=== PATIENT | female | born 1980 | race Caucasian/White ===

== ENCOUNTER 2020-02-01 06:49 | Day surgery (SDC) | payer OTHER ==
[2020-01-30 13:02] VITALS: BMI 25.0
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
[~2020-02-01 06:49] MED LIST: DEXAMETHASONE SOD PHOSPHATE 10 MG/ML 1 ML VIAL IV ONE; LACTATED RINGERS 1,000 ML IV SCH; LIDOCAINE 1% (10MG/ML) FOR IV START INTRADERMA PRN; ONDANSETRON 4 MG/2 ML VIAL IVP ONE; Pre Op ABX Message 1 EACH MISC MISCELLANE ONE
[2020-02-01] MEDS ORDERED: ROCURONIUM BROMIDE 10 MG/ML 5 ML VIAL IV ONE (07:22)
[2020-02-01] MEDS ORDERED: PROPOFOL 10 MG/ML 20 ML VIAL IV ONE ×2 (07:22)
[2020-02-01] MEDS ORDERED: LIDOCAINE 1% (10MG/ML) FOR IV START SQ ONE (07:22)
[2020-02-01] MEDS ORDERED: KETOROLAC 30 MG/ML 1 ML VIAL ONE (07:22)
[2020-02-01] MEDS ORDERED: LIDOCAINE 1% INJ 10MG/ML (20 ML MDV) ONE (07:22)
[2020-02-01] MEDS ORDERED: ACETAMINOPHEN IV (For NPO) 1,000 MG/100 ML VIAL ONE (07:22)
[2020-02-01] MEDS ORDERED: SUCCINYLCHOLINE CHLORIDE 100 MG/5 ML SYR IV ONE (07:22)
[2020-02-01] MEDS ORDERED: fentaNYL (PF) 50 MCG/ML 2 ML AMP ONE (07:22)
[2020-02-01] MEDS ORDERED: MIDAZOLAM 2 MG/2 ML VIAL ONE (07:22)
[2020-02-01] MEDS ORDERED: BUPIVACAINE (PF) 0.25% 30 ML VIAL SQ ONE (07:28)
--- NOTE | 2020-02-01 08:07 | P.OP ---
Date of Procedure: 02/01/20 Preoperative Diagnosis: Family planning Postoperative Diagnosis: Same Procedure(s) Performed: Laparoscopic tubal occlusion with Filshie clips Anesthesia: PATRICIA Surgeon: Alexandro Estes Estimated Blood Loss (ml): 5 IV fluids (ml): 300 Urine output (ml): 30 Pathology: none sent Condition: stable Disposition: same day Operative Findings: Normal female pelvic anatomy Description of Procedure: Patient was taken to the operating suite where general anesthetic was found be adequate. She was prepped and draped in the normal sterile fashion and placed in the dorsal lithotomy position. Initially a speculum was inserted into the vagina and the anterior lip of the cervix identified and grasped with single- tooth tenaculum. Uterus was then sounded to 8 cm and a uterine manipulator was then inserted without difficulty. Other instruments were removed. Red rubber catheter was then used to drain the bladder of urine. Gloves were then changed, and attention was turned to the abdominal portion procedure. 2 mL of quarter percent Marcaine was then injected periumbilically and through this injected anesthetic a 5 mm skin incision was made. Through this incision under direct visualization with an optical trocar and sleeve, the port and sleeve were inserted. Once peritoneal placement was assured gas was allowed to fully insufflate the abdomen. Patient was then placed in steep Trendelenburg position and 8 mm skin incision was made in her old scar 3 cm above the pubic symphysis in the midline. Through this incision an 8 port and sleeve were then inserted without difficulty and and this was again done under direct visualization. Observations pelvis were then noted first the right fallopian tube than the left fallopian tube had a Filshie clip applied 2-3 cm from uterine cornu. With no bleeding noted in the mesosalpinx incidents removed and gas was allowed to expel from the abdomen. 5 deep breaths were provided during this process. Once completed 4-0 Vicryl was used to close the incision subcuticularly and another 6 mL of quarter percent Marcaine was injected around these incisions. Incidents were then removed from vagina. Sponge, lap, needle counts were Plan - Discharge Summary Discharge Rx Participant: Yes New Discharge Prescriptions: New Ibuprofen [Motrin] 600 mg PO Q6HR PRN #30 tab PRN Reason: Pain HYDROcodone/APAP 5-325MG [[place] 5-325] 1 tab PO Q4HR PRN #30 tab PRN Reason: Pain No Action buPROPion HCL [Wellbutrin XL] 300 mg PO DAILY hydrOXYzine HCL 25 mg PO HS Deblitane 1 tab PO HS Discharge Medication List Deblitane 1 tab PO HS 01/30/20 [History] buPROPion HCL [Wellbutrin XL] 300 mg PO DAILY 01/30/20 [History] hydrOXYzine HCL 25 mg PO HS 01/30/20 [History] HYDROcodone/APAP 5-325MG [[place] 5-325] 1 tab PO Q4HR PRN #30 tab 02/01/20 [Rx] Ibuprofen [Motrin] 600 mg PO Q6HR PRN #30 tab 02/01/20 [Rx] Follow up Appointment(s)/Referral(s): Alexandro Estes DO [Doctor of Osteopathic Medicine] - 2 Weeks Activity/Diet/Wound Care/Special Instructions: No heavy lifting, limit stairs and driving, and pelvic rest. If any high temperatures, heavy bleeding, or severe pain call my office
[2020-02-01 08:21] VITALS: RESP 16; TEMP 97.8
[2020-02-01] MEDS: HYDROmorphone 0.5 MG/0.5 ML SYRINGE IVP PRN ×2 (08:30→08:39)
[2020-02-01] MEDS ORDERED: HYDROcodone/APAP 5-325MG 1 EACH TAB PO ONE (09:27)
[2020-02-01 10:05] VITALS: BP 139/90; PULSE 95
== END 2020-02-01 10:28 | disposition home or self-care (01) ==
LOC: OR 06:49
PROVIDERS: ATTEND Obstetrics & Gynecology
DX: Z30.2 Encounter for sterilization (principal); F32.9 Major depressive disorder, single episode, unspecified; K21.9 Gastro-esophageal reflux disease without esophagitis; F17.200 Nicotine dependence, unspecified, uncomplicated; Z87.81 Personal history of (healed) traumatic fracture; Z90.49 Acquired absence of other specified parts of digestive tract; Z98.890 Other specified postprocedural states; Z79.3 Long term (current) use of hormonal contraceptives; Z79.899 Other long term (current) drug therapy
CPT/HCPCS: 81025; 58671; J2250; J1100; J2405; J2001; J3010; J1885; J0131; J0330; J2704; J1170

== ENCOUNTER 2020-10-06 13:34 | Inpatient (IN) | payer MEDICAID, OTHER ==
[2020-10-06] MEDS ORDERED: chlordiazePOXIDE 25 MG CAP PO STA (14:24)
[2020-10-06 14:56] LABS: Amphetamine Screen,Urine Detected (NotDetected); Barbiturate Screen,Urine Not Detected (NotDetected); Benzodiazepines Screen,Urine Not Detected (NotDetected); Cocaine Screen,Urine Not Detected (NotDetected); Methadone Screen, Urine Not Detected (NotDetected); Opiate Screen,Urine Not Detected (NotDetected); Oxycodone Screen, Urine Not Detected (NotDetected); Phencyclidine Screen,Urine Not Detected (NotDetected); Tricyclic Antidepressant,Urine Not Detected (NotDetected); Urn Cannabinoid Scrn Detected (NotDetected)
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
[2020-10-06] MEDS ORDERED: ACETAMINOPHEN TAB 325 MG TAB PO PRN (16:06)
[2020-10-06] MEDS ORDERED: MAG HYDROX/AL HYDROX/SIMETH 30 ML CUP PO PRN (16:06)
[2020-10-06] MEDS ORDERED: MAGNESIUM HYDROXIDE 2,400 MG/10 ML CUP PO PRN (16:06)
[2020-10-06] MEDS ORDERED: LORazepam 2 MG/ML INJ IM PRN (16:11)
[2020-10-06] MEDS ORDERED: HALOPERIDOL LACTATE 5 MG/ML 1 ML VIAL IM PRN (16:11)
[2020-10-06] MEDS: LORazepam 1 MG TAB PO PRN (17:36)
[2020-10-06] MEDS: NICOTINE 14MG/24HR PATCH TRANSDERM SCH (20:52)
[2020-10-07 06:37] VITALS: RESP 18; TEMP 98.2
[2020-10-07 06:46] LABS: Basophils % (A) 0 %; Eosinophils # (A) 0.1 k/uL (0-0.7); Eosinophils % (A) 3 %; HCT 43.5 % (34.0-46.0); HGB 14.4 gm/dL (11.4-16.0); Lymphocytes # (A) 1.6 k/uL (1.0-4.8); Lymphocytes % (A) 37 %; MCH 29.9 pg (25.0-35.0); MCHC 33.2 g/dL (31.0-37.0); MCV 89.9 fL (80.0-100.0); Mean Platelet Volume 6.9; Monocytes # (A) 0.3 k/uL (0-1.0); Monocytes % (A) 6 %; Neutrophils # (A) 2.2 k/uL (1.3-7.7); Neutrophils % (A) 51 %; Platelet Count 259 k/uL (150-450); RBC 4.84 m/uL (3.80-5.40); RDW 12.9 % (11.5-15.5); WBC 4.3 k/uL (3.8-10.6)
[2020-10-07 06:56] LABS: ALT 22 U/L (4-34); AST 23 U/L (14-36); African American GFR (CKD) >90 (>60 ml/min/1.73 sqM); Albumin 3.6 g/dL (3.5-5.0); Alkaline Phosphatase 51 U/L (38-126); Anion Gap 4 mmol/L; Blood Urea Nitrogen 12 mg/dL (7-17); Calcium 8.7 mg/dL (8.4-10.2); Carbon Dioxide 32 mmol/L (22-30); Chloride 100 mmol/L (98-107); Cholesterol 225 mg/dL (<200); Glucose 98 mg/dL (74-99); HDL Cholesterol 66 mg/dL (40-60); LDL Cholesterol,Calculated 136 mg/dL (0-99); Non-African American GFR(CKD) >90 (>60 ml/min/1.73 sqM); Potassium 3.9 mmol/L (3.5-5.1); Sodium 136 mmol/L (137-145); Total Bilirubin 0.6 mg/dL (0.2-1.3); Total Protein 5.9 g/dL (6.3-8.2); Triglycerides 113 mg/dL (<150)
[2020-10-07] MEDS: LORazepam 1 MG TAB PO PRN ×3 (08:07→23:07)
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
[2020-10-07] MEDS: NICOTINE 14MG/24HR PATCH TRANSDERM SCH (21:07)
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
[2020-10-08] MEDS: LORazepam 1 MG TAB PO PRN (08:33)
[2020-10-08] MEDS ORDERED: diazePAM 5 MG TAB PO STA (08:56)
[2020-10-08 09:29] VITALS: BP 117/79; PULSE 104
--- NOTE | 2020-10-08 09:42 | CT ---
EXAMINATION TYPE: CT brain wo con DATE OF EXAM: 10/08/2020 COMPARISON: HISTORY: Unwitnessed fall, trauma and pain CT DLP: 1012.70 mGycm. Automated Exposure Control for Dose Reduction was Utilized. TECHNIQUE: CT scan of the head is performed without contrast. FINDINGS: There is no acute intracranial hemorrhage, mass effect, or midline shift identified. The ventricles and sulci are within normal limits in size. The globes are intact and the visualized sin uses are clear. IMPRESSION: No acute intracranial hemorrhage, mass effect, or midline shift is seen.
--- NOTE | 2020-10-08 11:18 | P.EN ---
I responded to the rapid response on the psych floor called my nursing staff and arrived to find the patient laying on the floor. She was awake and alert. Nursing staff informed me that she had the generalized seizure and failed to the ground and hit her head on the floor. Patient is having some mild headache but otherwise denies any complaints. She was awake and alert. She had some right periorbital bruising. No focal deficits. No loss of urine or bowel control. Patient admitted that she usually drinks a fifth of liquor on a daily basis. Last drink was 2 days ago. I was able to get the patient in the wheelchair with assistance of the staff. I ordered one-time dose of Valium 10 mg to be given stat noncontrast CT of the head for further evaluation. I advised to transfer the patient to the medical floor for observation.
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
[2020-10-08] MEDS ORDERED: chlordiazePOXIDE 25 MG CAP PO SCH (13:00)
== END 2020-10-08 11:32 | disposition short-term general hospital (02) | DRG 897 ==
LOC: EC 13:34 → 3MHU 15:58
PROVIDERS: ADMIT Psychiatry & Neurology Psychiatry; ATTEND Psychiatry & Neurology Psychiatry
DX: F19.94 Other psychoactive substance use, unspecified with psychoactive substance-induced mood disorder (principal); F11.20 Opioid dependence, uncomplicated; F15.20 Other stimulant dependence, uncomplicated; R45.851 Suicidal ideations; F10.229 Alcohol dependence with intoxication, unspecified; F10.239 Alcohol dependence with withdrawal, unspecified; F12.10 Cannabis abuse, uncomplicated; F14.10 Cocaine abuse, uncomplicated; Z71.6 Tobacco abuse counseling; F17.210 Nicotine dependence, cigarettes, uncomplicated; F32.9 Major depressive disorder, single episode, unspecified; F43.10 Post-traumatic stress disorder, unspecified; F45.41 Pain disorder exclusively related to psychological factors; R56.9 Unspecified convulsions; S00.11XA Contusion of right eyelid and periocular area, initial encounter; Y04.0XXA Assault by unarmed brawl or fight, initial encounter; Z59.9 Problem related to housing and economic circumstances, unspecified; Z63.5 Disruption of family by separation and divorce; Z79.899 Other long term (current) drug therapy; Z20.822 Contact with and (suspected) exposure to COVID-19
CPT/HCPCS: 70450; 80053; 80061; 80306; 82075; 83036; 84443; 85025; 87635; 99285

== ENCOUNTER 2020-10-08 09:07 | Inpatient (IN) | payer OTHER ==
[2020-10-08] MEDS ORDERED: LORazepam 2 MG/ML INJ IV PRN ×2 (13:12)
[2020-10-08] MEDS ORDERED: ONDANSETRON 4 MG/2 ML VIAL IVP PRN (13:13)
[2020-10-08] MEDS ORDERED: ACETAMINOPHEN TAB 325 MG TAB PO PRN (13:13)
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
[2020-10-08 14:30] LABS: Basophils % (A) 1 %; Eosinophils # (A) 0.1 k/uL (0-0.7); Eosinophils % (A) 1 %; HCT 49.5 % (34.0-46.0); HGB 16.8 gm/dL (11.4-16.0); Lymphocytes # (A) 1.2 k/uL (1.0-4.8); Lymphocytes % (A) 21 %; MCH 30.6 pg (25.0-35.0); MCV 90.1 fL (80.0-100.0); Mean Platelet Volume 7.4; Monocytes # (A) 0.3 k/uL (0-1.0); Monocytes % (A) 6 %; Neutrophils # (A) 3.9 k/uL (1.3-7.7); Neutrophils % (A) 70 %; Platelet Count 265 k/uL (150-450); RBC 5.49 m/uL (3.80-5.40); RDW 12.8 % (11.5-15.5); WBC 5.6 k/uL (3.8-10.6)
[2020-10-08] MEDS: LORazepam 2 MG/ML INJ IV PRN ×2 (16:58→19:49)
[2020-10-08] MEDS: THIAMINE 100 MG TAB PO SCH (16:59)
[2020-10-08] MEDS: HEPARIN SODIUM,PORCINE 5,000 UNIT/ML 1 ML VIAL SQ SCH (19:49)
[2020-10-08] MEDS ORDERED: NICOTINE 14MG/24HR PATCH TRANSDERM SCH (21:00)
[2020-10-09 02:21] LABS: African American GFR (CKD) 128.3 (60.0-200.0); Albumin 4.2 g/dL (3.80-4.90); Albumin/Globulin Ratio 1.83 (1.60-3.17); Anion Gap 11.3 mmol/L (4.00-12.00); BUN/Creat Ratio 18.57 Ratio (12.00-20.00); Calcium 9.7 mg/dL (8.7-10.3); Carbon Dioxide 20.7 mmol/L (21.6-31.8); Globulin 2.3 g/dL (1.6-3.3); Non-African American GFR(CKD) 110.7 (60.0-200.0); Potassium 4.3 mmol/L (3.5-5.5); Total Bilirubin 0.4 mg/dL (0.3-1.2); Total Protein 6.5 g/dL (6.2-8.2)
[2020-10-09] MEDS: HEPARIN SODIUM,PORCINE 5,000 UNIT/ML 1 ML VIAL SQ SCH (07:37)
[2020-10-09] MEDS: THIAMINE 100 MG TAB PO SCH ×2 (07:37→16:04)
[2020-10-09] MEDS: LORazepam 2 MG/ML INJ IV PRN ×2 (09:57→12:47)
[2020-10-09 12:47] LABS: Appearance,Urine Cloudy (Clear); Bacteria,Urine Many /hpf; Bilirubin,Urine Negative (Negative); Blood,Urine Negative (Negative); Color,Urine Yellow; Glucose,Urine (UA) Negative (Negative); Ketones,Urine 1+ (Negative); Leukocyte Esterase,Urine Large (Negative); Mucus,Urine Few /hpf; Nitrite,Urine Positive (Negative); Protein,Urine Trace (Negative); RBC,Urine 2 /hpf (0-5); Specific Gravity,Urine 1.021 (1.001-1.035); Squamous Epithelial Cell,Urine 10 /hpf (0-4); Urobilinogen,Urine <2.0 mg/dL (<2.0); WBC,Urine 123 /hpf (0-5)
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
--- NOTE | 2020-10-09 14:48 | P.DS ---
Providers Date of admission: 10/08/20 11:37 Expected date of discharge: 10/09/20 Attending physician: Javan Celis Consults: 10/08/20 13:15 Consult Physician Routine Consulting Provider: Svetlana Gutierrez Consult Reason/Comments: Alcohol withdrawal seizure Do you want consulting provider notified?: Yes 10/08/20 14:11 Consult Physician Routine Consulting Provider: You Lion Consult Reason/Comments: Inpatient psych admission? Do you want consulting provider notified?: Yes Primary care physician: Stated None Hospital Course: 1. Seizure episode, most likely alcohol withdrawal seizure. Computed tomography scan of the head showed no acute findings. EKG reviewed by neurology and reported normal. No need for antiepileptic at this time. 2. Severe depression, now denies any suicidal thoughts. Seen and evaluated by psychiatry 3. Polysubstance abuse including methamphetamine and marijuana. Counseled extensively to quit 4. Alcohol abuse with possible alcohol withdrawal seizure. Counseled extensively to quit Patient will be discharged back to the psych unit today for further management of her depression Patient Condition at Discharge: Fair Plan - Discharge Summary New Discharge Prescriptions: Continue Nicotine 14Mg/24Hr Patch [Habitrol] 1 patch TRANSDERM HS patch Discontinued haloperidoL [Haldol] 4 mg PO TID PRN tab PRN Reason: Agitation Or Acute Anxiety chlordiazePOXIDE HCl [Librium] 50 mg PO QID cap Acetaminophen Tab [Tylenol] 650 mg PO Q4HR PRN tab PRN Reason: Mild Pain/Discomfort Discharge Medication List Nicotine 14Mg/24Hr Patch [Habitrol] 1 patch TRANSDERM HS patch 10/08/20 [Rx] Discharge Disposition: TRANSFER TO PSYCH HOSP/UNIT
--- NOTE | 2020-10-09 14:48 | EEG ---
ELECTROENCEPHALOGRAM REPORT DATE OF SERVICE: 10/09/2020 PREAMBLE: This is a 39-year-old female who has new onset seizure, probably from alcohol withdrawal. This study is performed to evaluate for any epileptiform activity. EEG FINDINGS: This is a 21 channel routine EEG recording in a patient utilizing 10/20 international system with referential and bipolar montages. Background consists of well developed, well regulated, moderate voltage activity in 8-9 hertz alpha. Background is posterior dominant and reactive to eye opening and closing. There is moderate amount of low- voltage fast frequency beta activity also seen in the bilateral hemispheric region. The patient was drowsy and also in stage 2 sleep during most of the study with presence of some vertex waves and sleep spindles. The photic driving response was not clearly seen. No focal or generalized epileptiform activity was seen. IMPRESSION: This is a normal EEG during wakefulness, drowsiness and stage 2 sleep. The presence of excessive amount of low-voltage fast frequency beta is suggestive of medication effect. No epileptiform activity was seen. MMODL / IJN: [id number] /
[2020-10-09 15:16] VITALS: BP 114/82; PULSE 113; RESP 16; TEMP 98.1
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
[2020-10-09] MEDS ORDERED: chlordiazePOXIDE 25 MG CAP PO SCH (16:00)
[2020-10-09] MEDS ORDERED: VENLAFAXINE HCL ER 75 MG CAP PO SCH (21:00)
== END 2020-10-09 17:12 | DRG 897 ==
LOC: 4SSUR 11:37
PROVIDERS: ADMIT Internal Medicine; ATTEND Internal Medicine
DX: F10.239 Alcohol dependence with withdrawal, unspecified (principal); R45.851 Suicidal ideations; G40.89 Other seizures; F32.2 Major depressive disorder, single episode, severe without psychotic features; F15.20 Other stimulant dependence, uncomplicated; F12.10 Cannabis abuse, uncomplicated; F17.210 Nicotine dependence, cigarettes, uncomplicated; S00.11XA Contusion of right eyelid and periocular area, initial encounter; F43.10 Post-traumatic stress disorder, unspecified; Z20.822 Contact with and (suspected) exposure to COVID-19; W18.30XA Fall on same level, unspecified, initial encounter
CPT/HCPCS: 80053; 81001; 85025; 87635; 95819

== ENCOUNTER 2020-10-09 17:05 | Inpatient (IN) | payer MEDICAID ==
[2020-10-09] MEDS ORDERED: LORazepam 1 MG TAB PO PRN ×2 (17:53)
[2020-10-09] MEDS ORDERED: MAG HYDROX/AL HYDROX/SIMETH 30 ML CUP PO PRN (17:57)
[2020-10-09] MEDS ORDERED: MAGNESIUM HYDROXIDE 2,400 MG/10 ML CUP PO PRN (17:57)
[2020-10-09] MEDS ORDERED: LORazepam 2 MG/ML INJ IM PRN ×2 (18:01)
[2020-10-09] MEDS ORDERED: haloperidoL 5 MG TAB PO PRN (19:49)
[2020-10-09] MEDS ORDERED: HALOPERIDOL LACTATE 5 MG/ML 1 ML VIAL IM PRN (19:49)
[2020-10-09] MEDS: VENLAFAXINE HCL 75 MG TAB PO SCH (19:56)
[2020-10-09] MEDS: NICOTINE 14MG/24HR PATCH TRANSDERM SCH (19:56)
[2020-10-09] MEDS: THIAMINE 100 MG TAB PO SCH (19:56)
[2020-10-09] MEDS: chlordiazePOXIDE 25 MG CAP PO SCH (23:18)
[2020-10-10] MEDS: ACETAMINOPHEN TAB 325 MG TAB PO PRN ×2 (01:28→14:30)
[2020-10-10 07:28] LABS: Cholesterol 288 mg/dL (<200); HDL Cholesterol 54 mg/dL (40-60); LDL Cholesterol,Calculated 211 mg/dL (0-99); Triglycerides 115 mg/dL (<150)
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
[2020-10-10] MEDS: chlordiazePOXIDE 25 MG CAP PO SCH ×3 (09:41→21:59)
[2020-10-10] MEDS: THIAMINE 100 MG TAB PO SCH ×2 (09:41→21:58)
--- NOTE | 2020-10-10 11:12 | P.CONS ---
History of Present Illness - Reason for Consult Consult date: 10/10/20 Medical management - Chief Complaint Depression - History of Present Illness This is a 39 with past medical history noted below significant for alcohol abuse and depression was currently admitted to the psych unit. I was asked to see the patient for medical management. Patient is awake and alert. She is doing well. She had a seizure episode couple of days ago that was attributed to alcohol withdrawal. She does not have any complaint at this time. EEG was normal. Review of Systems Review of system: 14 points review of systems were obtained and were negative except to what were mentioned in the HPI. Past Medical History Past Medical History: Musculoskeletal Disorder Additional Past Medical History / Comment(s): AA in 2018-fx. femur History of Any Multi-Drug Resistant Organisms: None Reported Past Surgical History: Appendectomy, Orthopedic Surgery Additional Past Surgical History / Comment(s): ORIF right femur & hip Past Anesthesia/Blood Transfusion Reactions: No Reported Reaction Past Psychological History: Depression, PTSD Smoking Status: Current every day smoker Past Alcohol Use History: Abuse, Daily Additional Past Alcohol Use History / Comment(s): down to 6-7 cigs/day for 20 yrs. Past Drug Use History: Cocaine, Marijuana, Methamphetamine, Opiates, Prescription Drug Abuse Additional Drug Use History / Comment(s): Pt reports she has polysubstance abuse since the age of 20 - Past Family History Mother Family Medical History: No Reported History Medications and Allergies Home Medications Medication Instructions Recorded Confirmed Type Nicotine 14Mg/24Hr Patch [Habitrol] 1 patch TRANSDERM HS patch 10/08/20 10/09/20 Rx Allergies Allergy/AdvReac Type Severity Reaction Status Date / Time No Known Allergies Allergy Verified 10/09/20 18:36 Physical Exam Vitals: Vital Signs Temp Pulse Resp BP Pulse Ox 10/10/20 09:48 98.2 F 103 H 16 132/88 97 10/10/20 01:30 97.3 F L 122 H 18 115/82 10/09/20 23:22 104 H 136/75 10/09/20 18:21 98.1 F 104 H 20 127/77 Intake and Output 10/09/20 10/10/20 10/10/20 22:59 06:59 14:59 Other: Weight 71.838 kg General: The patient is awake and alert, in no distress Eye: there is normal conjunctiva bilaterally. Neck: The neck is supple, there is no JVD. Cardiovascular: Normal S1-S2, no S3-S4, no murmurs. Respiratory: Lungs clear to auscultation bilaterally Gastrointestinal: Abdomen is soft, nontender Musculoskeletal: There is no pedal edema. Neurological:. Speech is normal. Skin: Skin is warm and dry Results Labs: Abnormal Lab Results - Last 24 Hours (Table) 10/10/20 Range/Units 06:48 Cholesterol 288 H (<200) mg/dL LDL Cholesterol, Calc 211 H (0-99) mg/dL Assessment and Plan Assessment: 39-year-old female currently admitted to the psych unit for further management of her depression. Below is a list of her medical problems. 1. Severe depression with suicidal thoughts on presentation to the hospital, managed by psychiatry 2. Heavy alcohol abuse: Counseled extensively to stop 3. Alcohol withdrawal seizure. Patient was monitored on the medical floor. No evidence of withdrawal. EEG was normal. Thank you for the consultation. I will follow up on the patient on as-needed basis.
[2020-10-10 11:59] LABS: Hemoglobin A1C 4.9 % (4.0-6.0)
[2020-10-10] MEDS: VENLAFAXINE HCL 75 MG TAB PO SCH (21:58)
[2020-10-10] MEDS: NICOTINE 14MG/24HR PATCH TRANSDERM SCH (22:04)
[2020-10-11 06:38] VITALS: TEMP 98
[2020-10-11] MEDS: THIAMINE 100 MG TAB PO SCH (08:12)
[2020-10-11] MEDS: chlordiazePOXIDE 25 MG CAP PO SCH (08:12)
[2020-10-11 09:50] VITALS: BP 123/80; PULSE 120; RESP 16
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
== END 2020-10-11 12:59 | disposition home or self-care (01) | DRG 881 ==
LOC: 3MHU 17:17
PROVIDERS: ADMIT Psychiatry & Neurology Psychiatry; ATTEND Psychiatry & Neurology Psychiatry
DX: F32.9 Major depressive disorder, single episode, unspecified (principal); R45.851 Suicidal ideations; F15.20 Other stimulant dependence, uncomplicated; F10.230 Alcohol dependence with withdrawal, uncomplicated; F11.20 Opioid dependence, uncomplicated; R56.9 Unspecified convulsions; F14.10 Cocaine abuse, uncomplicated; F12.10 Cannabis abuse, uncomplicated; F43.10 Post-traumatic stress disorder, unspecified; F17.200 Nicotine dependence, unspecified, uncomplicated; Z91.419 Personal history of unspecified adult abuse
CPT/HCPCS: 80061; 83036

== ENCOUNTER 2021-04-07 07:13 | Emergency (ER) | payer OTHER ==
[2021-04-07 07:22] VITALS: TEMP 98.4
[2021-04-07] MEDS ORDERED: ONDANSETRON 4 MG/2 ML VIAL IVP STA (07:33)
[2021-04-07] MEDS ORDERED: KETOROLAC 15 MG/ML 1 ML VIAL IVP STA ×2 (07:33→09:22)
[2021-04-07] MEDS ORDERED: SODIUM CHLORIDE 0.9% 500 ML 500 ML IV STA (07:33)
[2021-04-07] MEDS ORDERED: HYDROmorphone 0.5 MG/0.5 ML SYRINGE IVP STA ×2 (07:33→10:21)
[2021-04-07] MEDS ORDERED: SODIUM CHLORIDE 0.9% 1,000 ML IV STA (07:33)
--- NOTE | 2021-04-07 08:03 | ED ---
Abdominal Pain HPI - General Chief Complaint: Abdominal Pain Stated Complaint: Side Pain Time Seen by Provider: 04/07/21 07:24 Source: patient, RN notes reviewed Mode of arrival: wheelchair Limitations: no limitations - History of Present Illness Initial Comments: This a 40-year-old female presents emergency Department with chief complaint of right flank pain. Patient states severe pain that started overnight. Patient states that associate nausea vomiting no diarrhea no constipation. Prior appendectomy sits there is no chance . She has no lower abdominal complaints. Patient states nothing currently is making her pain feel better or worse. She has NO KNOWN DRUG ALLERGIES. - Related Data Home Medications Medication Instructions Recorded Confirmed Naproxen 500 mg PO BID 04/07/21 04/07/21 Previous Rx's Medication Instructions Recorded Cephalexin [Keflex] 500 mg PO Q6HR #40 cap 04/07/21 Ketorolac [Toradol] 10 mg PO Q8HR #15 tab 04/07/21 Ondansetron Odt [Zofran Odt] 4 mg PO Q8HR PRN #10 tab 04/07/21 Tamsulosin [Flomax] 0.4 mg PO DAILY #7 cap 04/07/21 Allergies Allergy/AdvReac Type Severity Reaction Status Date / Time No Known Allergies Allergy Verified 04/07/21 08:51 Review of Systems ROS Statement: Those systems with pertinent positive or pertinent negative responses have been documented in the HPI. ROS Other: All systems not noted in ROS Statement are negative. Past Medical History Past Medical History: Musculoskeletal Disorder Additional Past Medical History / Comment(s): AA in 2018-fx. femur History of Any Multi-Drug Resistant Organisms: None Reported Past Surgical History: Appendectomy, Orthopedic Surgery Additional Past Surgical History / Comment(s): ORIF right femur & hip Past Anesthesia/Blood Transfusion Reactions: No Reported Reaction Past Psychological History: Depression, PTSD Smoking Status: Current every day smoker Past Alcohol Use History: None Reported Past Drug Use History: None Reported - Past Family History Mother Family Medical History: No Reported History General Exam Limitations: no limitations General appearance: alert, in no apparent distress Head exam: Present: atraumatic, normocephalic, normal inspection Neck exam: Present: normal inspection. Absent: tenderness, meningismus, lymphadenopathy Respiratory exam: Present: normal lung sounds bilaterally. Absent: respiratory distress, wheezes, rales, rhonchi, stridor Cardiovascular Exam: Present: regular rate, normal rhythm, normal heart sounds. Absent: systolic murmur, diastolic murmur, rubs, gallop, clicks GI/Abdominal exam: Present: soft, tenderness, normal bowel sounds. Absent: distended, guarding, rebound, rigid Back exam: Present: CVA tenderness (R). Absent: CVA tenderness (L) Neurological exam: Present: alert Skin exam: Present: warm, dry, intact, normal color. Absent: rash Course Vital Signs 04/07/21 07:19 Temperature 98.4 F Pulse Rate 87 Respiratory 20 Rate Blood Pressure 133/95 O2 Sat by Pulse 100 Oximetry Medical Decision Making - Medical Decision Making 32-year-old female presented emergency department with right flank pain. Patient's found to have obstructing 6 mm right ureteral calculi. Patient lab review patient does have evidence of urinary tract infection. I did discuss the case with Dr. Heaton was controlled patient be discharged with pain control with oral antibiotics will be given a dose of Rocephin prior to discharge will follow-up in office return parameters were discussed. - Lab Data Result diagrams: 04/07/21 07:59 04/07/21 07:59 Lab Results 04/07/21 04/07/21 04/07/21 Range/Units 07:59 07:59 09:09 WBC 13.7 H (3.8-10.6) k/uL RBC 5.34 (3.80-5.40) m/uL Hgb 15.9 (11.4-16.0) gm/dL Hct 46.8 H (34.0-46.0) % MCV 87.7 (80.0-100.0) fL MCH 29.8 (25.0-35.0) pg MCHC 33.9 (31.0-37.0) g/dL RDW 13.2 (11.5-15.5) % Plt Count 291 (150-450) k/uL MPV 7.3 Neutrophils % 87 % Lymphocytes % 8 % Monocytes % 3 % Eosinophils % 1 % Basophils % 0 % Neutrophils # 12.0 H (1.3-7.7) k/uL Lymphocytes # 1.1 (1.0-4.8) k/uL Monocytes # 0.4 (0-1.0) k/uL Eosinophils # 0.2 (0-0.7) k/uL Basophils # 0.0 (0-0.2) k/uL Sodium 137 (137-145) mmol/L Potassium 3.8 (3.5-5.1) mmol/L Chloride 108 H (98-107) mmol/L Carbon Dioxide 19 L (22-30) mmol/L Anion Gap 10 mmol/L BUN 14 (7-17) mg/dL Creatinine 0.64 (0.52-1.04) mg/dL Est GFR (CKD-EPI)AfAm >90 (>60 ml/min/1.73 sqM) Est GFR (CKD-EPI)NonAf >90 (>60 ml/min/1.73 sqM) Glucose 143 H (74-99) mg/dL Calcium 9.6 (8.4-10.2) mg/dL Total Bilirubin 0.5 (0.2-1.3) mg/dL AST 27 (14-36) U/L ALT 19 (4-34) U/L Alkaline Phosphatase 80 (38-126) U/L Total Protein 6.8 (6.3-8.2) g/dL Albumin 4.2 (3.5-5.0) g/dL Lipase 33 (23-300) U/L Urine Color Yellow Urine Appearance Cloudy H (Clear) Urine pH 7.5 (5.0-8.0) Ur Specific [place] 1.022 (1.001-1.035) Urine Protein Trace H (Negative) Urine Glucose (UA) Negative (Negative) Urine Ketones 1+ H (Negative) Urine Blood Small H (Negative) Urine Nitrite Positive H (Negative) Urine Bilirubin Negative (Negative) Urine Urobilinogen <2.0 (<2.0) mg/dL Ur Leukocyte Esterase Large H (Negative) Urine RBC 27 H (0-5) /hpf Urine WBC 48 H (0-5) /hpf Ur Squamous Epith Cells 17 H (0-4) /hpf Urine Bacteria Many H (None) /hpf Urine Mucus Moderate H (None) /hpf Urine HCG, Qual (Not Detectd) 04/07/21 Range/Units 09:09 WBC (3.8-10.6) k/uL RBC (3.80-5.40) m/uL Hgb (11.4-16.0) gm/dL Hct (34.0-46.0) % MCV (80.0-100.0) fL MCH (25.0-35.0) pg MCHC (31.0-37.0) g/dL RDW (11.5-15.5) % Plt Count (150-450) k/uL MPV Neutrophils % % Lymphocytes % % Monocytes % % Eosinophils % % Basophils % % Neutrophils # (1.3-7.7) k/uL Lymphocytes # (1.0-4.8) k/uL Monocytes # (0-1.0) k/uL Eosinophils # (0-0.7) k/uL Basophils # (0-0.2) k/uL Sodium (137-145) mmol/L Potassium (3.5-5.1) mmol/L Chloride (98-107) mmol/L Carbon Dioxide (22-30) mmol/L Anion Gap mmol/L BUN (7-17) mg/dL Creatinine (0.52-1.04) mg/dL Est GFR (CKD-EPI)AfAm (>60 ml/min/1.73 sqM) Est GFR (CKD-EPI)NonAf (>60 ml/min/1.73 sqM) Glucose (74-99) mg/dL Calcium (8.4-10.2) mg/dL Total Bilirubin (0.2-1.3) mg/dL AST (14-36) U/L ALT (4-34) U/L Alkaline Phosphatase (38-126) U/L Total Protein (6.3-8.2) g/dL Albumin (3.5-5.0) g/dL Lipase (23-300) U/L Urine Color Urine Appearance (Clear) Urine pH (5.0-8.0) Ur Specific [place] (1.001-1.035) Urine Protein (Negative) Urine Glucose (UA) (Negative) Urine Ketones (Negative) Urine Blood (Negative) Urine Nitrite (Negative) Urine Bilirubin (Negative) Urine Urobilinogen (<2.0) mg/dL Ur Leukocyte Esterase (Negative) Urine RBC (0-5) /hpf Urine WBC (0-5) /hpf Ur Squamous Epith Cells (0-4) /hpf Urine Bacteria (None) /hpf Urine Mucus (None) /hpf Urine HCG, Qual Not Detected (Not Detectd) Disposition Clinical Impression: Right ureteral calculus, Urinary tract infection Disposition: HOME SELF-CARE Condition: Stable Instructions (If sedation given, give patient instructions): Kidney Stones (ED) Additional Instructions: Please return to the Emergency Department if symptoms worsen or any other concerns. Prescriptions: Tamsulosin [Flomax] 0.4 mg PO DAILY #7 cap Cephalexin [Keflex] 500 mg PO Q6HR #40 cap Ketorolac [Toradol] 10 mg PO Q8HR #15 tab Ondansetron Odt [Zofran Odt] 4 mg PO Q8HR PRN #10 tab PRN Reason: Nausea Is patient prescribed a controlled substance at d/c from ED?: No [facility]: [facility] [Primary Care Provider] - 1-2 days Tre Oneal MD [STAFF PHYSICIAN] - 1-2 days Time of Disposition: 10:21
[2021-04-07 08:08] LABS: Basophils % (A) 0 %; Eosinophils # (A) 0.2 k/uL (0-0.7); Eosinophils % (A) 1 %; HCT 46.8 % (34.0-46.0); HGB 15.9 gm/dL (11.4-16.0); Lymphocytes # (A) 1.1 k/uL (1.0-4.8); Lymphocytes % (A) 8 %; MCH 29.8 pg (25.0-35.0); MCHC 33.9 g/dL (31.0-37.0); MCV 87.7 fL (80.0-100.0); Mean Platelet Volume 7.3; Monocytes # (A) 0.4 k/uL (0-1.0); Monocytes % (A) 3 %; Neutrophils % (A) 87 %; Platelet Count 291 k/uL (150-450); RBC 5.34 m/uL (3.80-5.40); RDW 13.2 % (11.5-15.5); WBC 13.7 k/uL (3.8-10.6)
[2021-04-07 08:25] LABS: ALT 19 U/L (4-34); AST 27 U/L (14-36); African American GFR (CKD) >90 (>60 ml/min/1.73 sqM); Albumin 4.2 g/dL (3.5-5.0); Alkaline Phosphatase 80 U/L (38-126); Anion Gap 10 mmol/L; Blood Urea Nitrogen 14 mg/dL (7-17); Calcium 9.6 mg/dL (8.4-10.2); Carbon Dioxide 19 mmol/L (22-30); Chloride 108 mmol/L (98-107); Glucose 143 mg/dL (74-99); Lipase 33 U/L (23-300); Non-African American GFR(CKD) >90 (>60 ml/min/1.73 sqM); Potassium 3.8 mmol/L (3.5-5.1); Sodium 137 mmol/L (137-145); Total Bilirubin 0.5 mg/dL (0.2-1.3); Total Protein 6.8 g/dL (6.3-8.2)
--- NOTE | 2021-04-07 08:49 | CT ---
EXAMINATION TYPE: CT abdomen pelvis wo con DATE OF EXAM: 04/07/2021 COMPARISON: None HISTORY: 40-year-old female right flank pain, nausea, vomiting CT DLP: 538.4 mGycm. Automated exposure control for dose reduction was used. TECHNIQUE: Contiguous axial scanning of the abdomen and pelvis without IV contrast. Coronal and sagit roberto reconstructions performed. FINDINGS: Heart normal size without pericardial effusion. Tiny hiatal hernia. Lung bases clear without pleural effusion. Liver enlarged at 19.1 cm. Gallbladder is collapsed. Adrenal glands and pancreas show no gross abnorm ality by noncontrast CT. Borderline size spleen at 13.9 cm. Hilar splenule. Scattered nonobstructive left renal calculi measuring up to 4 mm. Nonobstructive right renal calculi measuring up to 8 mm ovoid asymmetric right renal enlargement and edema with [id number] hydronephrosis and asymmetric right-sided hydroureter. There is a 6 mm ca lculus in the mid right ureter. A 2.5 cm hypodense lesion upper pole right kidney likely cyst. No dilated small bowel, free fluid, or free air. No mesenteric or retroperitoneal lymphadenopathy. Mild stool burden. Scattered mild left-sided colonic diverticulosis. No pericolonic inflammatory waite ge. Bladder nondistended. Uterus is anteverted. Both ovaries are visualized. Bilateral tubal ligation cli ps. Mild cul-de-sac free fluid likely physiologic. No pelvic lymphadenopathy seen. Antegrade intramedullary nail with screw fixation on the right. Mild degenerative spurring at both hi ps. No osseous destructive process. IMPRESSION: 1. A 6 mm calculus in the mid right ureter with [id number] obstructive uropathy. 2. Numerous additional bilateral nonobstructive renal calculi measuring up to 8 mm. 3. Hepatomegaly (19.1 cm) and borderline splenomegaly (13.9 cm). 4. Tiny hiatal hernia. A few scattered left-sided colonic diverticula. 5. Mild cul-de-sac free fluid likely physiologic.
[2021-04-07] MEDS ORDERED: HYDROmorphone 1 MG/ML 1 ML SYRINGE IVP STA (09:22)
[2021-04-07 09:43] LABS: Appearance,Urine Cloudy (Clear); Bacteria,Urine Many /hpf; Bilirubin,Urine Negative (Negative); Blood,Urine Small (Negative); Color,Urine Yellow; Glucose,Urine (UA) Negative (Negative); Ketones,Urine 1+ (Negative); Leukocyte Esterase,Urine Large (Negative); Mucus,Urine Moderate /hpf; Nitrite,Urine Positive (Negative); PH, Urine 7.5 (5.0-8.0); Protein,Urine Trace (Negative); RBC,Urine 27 /hpf (0-5); Specific Gravity,Urine 1.022 (1.001-1.035); Squamous Epithelial Cell,Urine 17 /hpf (0-4); Urobilinogen,Urine <2.0 mg/dL (<2.0); WBC,Urine 48 /hpf (0-5)
[2021-04-07] MEDS ORDERED: cefTRIAXone IN SWFI 1,000 MG/10 ML SYRINGE IVP STA (10:16)
[2021-04-07 10:32] VITALS: BP 148/78; PULSE 88; RESP 16
== END 2021-04-07 10:37 | disposition home or self-care (01) ==
LOC: EC 07:13
DX: N20.2 Calculus of kidney with calculus of ureter (principal); N39.0 Urinary tract infection, site not specified; F17.200 Nicotine dependence, unspecified, uncomplicated
CPT/HCPCS: 36415; 80053; 83690; 85025; 81001; 81025; 87086; 74176; 99284; 96374; 96375; 96376; 96361; J2405; J0696; J1170 ×2; J1885; 87077; 87186

== ENCOUNTER 2021-05-28 03:57 | Observation (INO) | payer OTHER ==
[2021-05-28 05:05] LABS: Basophils % (A) 0 %; Eosinophils # (A) 0.1 k/uL (0-0.7); Eosinophils % (A) 0 %; HCT 45.4 % (34.0-46.0); HGB 15.2 gm/dL (11.4-16.0); Lymphocytes # (A) 0.6 k/uL (1.0-4.8); Lymphocytes % (A) 4 %; MCHC 33.5 g/dL (31.0-37.0); MCV 86.6 fL (80.0-100.0); Mean Platelet Volume 7.9; Monocytes # (A) 0.6 k/uL (0-1.0); Monocytes % (A) 4 %; Neutrophils # (A) 14.7 k/uL (1.3-7.7); Neutrophils % (A) 92 %; Platelet Count 318 k/uL (150-450); RBC 5.24 m/uL (3.80-5.40); RDW 12.9 % (11.5-15.5)
--- NOTE | 2021-05-28 05:06 | CT ---
EXAMINATION TYPE: CT abdomen pelvis wo con DATE OF EXAM: 05/28/2021 COMPARISON: 04/07/2021 HISTORY: Abdominal pain CT DLP: 537.8 mGycm Automated exposure control for dose reduction was used. Images obtained from the diaphragm to the floor the pelvis without contrast. Lung bases are clear. There is no pleural effusion. Heart size is normal. There is no pericardial eff usion. Liver spleen stomach pancreas gallbladder appear intact. Bile ducts are nondilated. Gallbladder is co ntracted. There is probably a single calcified gallstone. There is no adrenal mass. There are multiple bilateral renal calculi. There is right-sided hydronephr osis and hydroureter. There is 7 mm calculus in the distal right ureter close to the ureterovesical j unction. Bladder distends smoothly. There is no inguinal hernia. There clips from tubal ligation. The re is no free fluid in the pelvis. There is right hip nailing. There is no mesenteric edema. There is no ascites or free air. There are clips apparently from append ectomy. Lumbar vertebra have normal alignment. Posterior elements are intact. There is no compression fractur e. Disc spaces are normal. Bony pelvis is intact. IMPRESSION: Bilateral renal calculi. Enlarged right kidney with hydronephrosis and hydroureter. Obstructing calcu mikey distal right ureter. The calculus in the distal right ureter has migrated from the proximal urete r compared to old exam.
[2021-05-28 05:12] LABS: Appearance,Urine Turbid (Clear); Bacteria,Urine Few /hpf; Bilirubin,Urine Negative (Negative); Blood,Urine Large (Negative); Color,Urine Yellow; Glucose,Urine (UA) Negative (Negative); Ketones,Urine 4+ (Negative); Leukocyte Esterase,Urine Large (Negative); Mucus,Urine Many /hpf; Nitrite,Urine Positive (Negative); PH, Urine 5.5 (5.0-8.0); Protein,Urine 1+ (Negative); RBC,Urine >182 /hpf (0-5); Specific Gravity,Urine 1.023 (1.001-1.035); Squamous Epithelial Cell,Urine 8 /hpf (0-4); Urobilinogen,Urine <2.0 mg/dL (<2.0); WBC,Urine >182 /hpf (0-5)
[2021-05-28 05:28] LABS: ALT 17 U/L (4-34); AST 27 U/L (14-36); African American GFR (CKD) >90 (>60 ml/min/1.73 sqM); Albumin 4.2 g/dL (3.5-5.0); Alkaline Phosphatase 63 U/L (38-126); Amylase 62 U/L (30-110); Anion Gap 10 mmol/L; Blood Urea Nitrogen 17 mg/dL (7-17); Calcium 10.1 mg/dL (8.4-10.2); Carbon Dioxide 19 mmol/L (22-30); Chloride 107 mmol/L (98-107); Glucose 151 mg/dL (74-99); Lipase 44 U/L (23-300); Non-African American GFR(CKD) >90 (>60 ml/min/1.73 sqM); Potassium 3.7 mmol/L (3.5-5.1); Sodium 136 mmol/L (137-145); Total Bilirubin 0.7 mg/dL (0.2-1.3); Total Protein 6.7 g/dL (6.3-8.2)
[2021-05-28] MEDS ORDERED: ONDANSETRON 4 MG/2 ML VIAL IVP STA (05:37)
[2021-05-28] MEDS ORDERED: HYDROmorphone 0.5 MG/0.5 ML SYRINGE IVP STA ×2 (05:37→06:22)
[2021-05-28] MEDS ORDERED: KETOROLAC 15 MG/ML 1 ML VIAL IVP STA (05:37)
[2021-05-28] MEDS ORDERED: ONDANSETRON 4 MG/2 ML VIAL IVP PRN (06:31)
[2021-05-28] MEDS ORDERED: NALOXONE 0.4 MG/ML 1 ML VIAL IV PRN (06:31)
[2021-05-28] MEDS ORDERED: MAG HYDROX/AL HYDROX/SIMETH 30 ML CUP PO PRN (06:31)
--- NOTE | 2021-05-28 09:07 | ED ---
Abdominal Pain HPI - General Chief Complaint: Abdominal Pain Stated Complaint: poss kidney stone Time Seen by Provider: 05/28/21 04:24 Source: patient Mode of arrival: wheelchair Limitations: no limitations - History of Present Illness MD Complaint: abdominal pain Onset/Timin -: hour(s) Location: RLQ, R flank Radiation: none Migration to: no migration Severity: severe Quality: sharp Consistency: constant Improves With: nothing Worsens With: nothing Associated Symptoms: nausea, vomiting - Related Data Home Medications Medication Instructions Recorded Confirmed Buprenorphine HCl/Naloxone HCl 1 film SUBLINGUAL BID 05/28/21 05/28/21 [Suboxone 8 mg-2 mg Sl Film] Allergies Allergy/AdvReac Type Severity Reaction Status Date / Time No Known Allergies Allergy Verified 05/28/21 04:23 Review of Systems ROS Statement: Those systems with pertinent positive or pertinent negative responses have been documented in the HPI. ROS Other: All systems not noted in ROS Statement are negative. Constitutional: Denies: fever, chills, weakness Respiratory: Denies: cough, dyspnea, wheezes Cardiovascular: Denies: chest pain, palpitations, edema Gastrointestinal: Reports: as per HPI, abdominal pain, nausea, vomiting. Denies: diarrhea, constipation, melena, hematochezia Genitourinary: Reports: frequency. Denies: dysuria, hematuria, abnormal menses Musculoskeletal: Denies: back pain Skin: Denies: rash Neurological: Denies: headache, weakness, numbness Past Medical History Past Medical History: Musculoskeletal Disorder Additional Past Medical History / Comment(s): AA in 2018-fx. femur History of Any Multi-Drug Resistant Organisms: None Reported Past Surgical History: Appendectomy, Orthopedic Surgery Additional Past Surgical History / Comment(s): ORIF right femur & hip Past Anesthesia/Blood Transfusion Reactions: No Reported Reaction Past Psychological History: Depression, PTSD Smoking Status: Current every day smoker Past Alcohol Use History: None Reported Past Drug Use History: None Reported - Past Family History Mother Family Medical History: No Reported History General Exam General appearance: alert, in no apparent distress Head exam: Present: atraumatic, normocephalic Eye exam: Present: normal appearance. Absent: scleral icterus, conjunctival injection ENT exam: Present: normal oropharynx Neck exam: Present: normal inspection Respiratory exam: Present: normal lung sounds bilaterally. Absent: respiratory distress, wheezes, rales, rhonchi, stridor Cardiovascular Exam: Present: regular rate, normal rhythm, normal heart sounds. Absent: systolic murmur, diastolic murmur, rubs, gallop GI/Abdominal exam: Present: soft. Absent: distended, tenderness, guarding, rebound, rigid, mass Extremities exam: Present: normal inspection, normal capillary refill. Absent: pedal edema, calf tenderness Back exam: Present: normal inspection, CVA tenderness (R). Absent: CVA tenderness (L) Neurological exam: Present: alert Skin exam: Present: warm, dry, intact, normal color. Absent: rash Course Vital Signs 05/28/21 05/28/21 05/28/21 04:09 06:00 06:34 Temperature 97.2 F L 97.7 F Pulse Rate 85 65 74 Respiratory 18 20 18 Rate Blood Pressure 146/77 122/80 111/84 O2 Sat by Pulse 100 100 100 Oximetry Medical Decision Making - Lab Data Result diagrams: 05/28/21 04:39 05/28/21 04:39 Lab Results 05/28/21 05/28/21 05/28/21 Range/Units 04:39 04:39 04:39 WBC 16.0 H (3.8-10.6) k/uL RBC 5.24 (3.80-5.40) m/uL Hgb 15.2 (11.4-16.0) gm/dL Hct 45.4 (34.0-46.0) % MCV 86.6 (80.0-100.0) fL MCH 29.0 (25.0-35.0) pg MCHC 33.5 (31.0-37.0) g/dL RDW 12.9 (11.5-15.5) % Plt Count 318 (150-450) k/uL MPV 7.9 Neutrophils % 92 % Lymphocytes % 4 % Monocytes % 4 % Eosinophils % 0 % Basophils % 0 % Neutrophils # 14.7 H (1.3-7.7) k/uL Lymphocytes # 0.6 L (1.0-4.8) k/uL Monocytes # 0.6 (0-1.0) k/uL Eosinophils # 0.1 (0-0.7) k/uL Basophils # 0.0 (0-0.2) k/uL Sodium (137-145) mmol/L Potassium (3.5-5.1) mmol/L Chloride (98-107) mmol/L Carbon Dioxide (22-30) mmol/L Anion Gap mmol/L BUN (7-17) mg/dL Creatinine (0.52-1.04) mg/dL Est GFR (CKD-EPI)AfAm (>60 ml/min/1.73 sqM) Est GFR (CKD-EPI)NonAf (>60 ml/min/1.73 sqM) Glucose (74-99) mg/dL Calcium (8.4-10.2) mg/dL Total Bilirubin (0.2-1.3) mg/dL AST (14-36) U/L ALT (4-34) U/L Alkaline Phosphatase (38-126) U/L Total Protein (6.3-8.2) g/dL Albumin (3.5-5.0) g/dL Amylase (30-110) U/L Lipase (23-300) U/L Urine Color Yellow Urine Appearance Turbid H (Clear) Urine pH 5.5 (5.0-8.0) Ur Specific [place] 1.023 (1.001-1.035) Urine Protein 1+ H (Negative) Urine Glucose (UA) Negative (Negative) Urine Ketones 4+ H (Negative) Urine Blood Large H (Negative) Urine Nitrite Positive H (Negative) Urine Bilirubin Negative (Negative) Urine Urobilinogen <2.0 (<2.0) mg/dL Ur Leukocyte Esterase Large H (Negative) Urine RBC >182 H (0-5) /hpf Urine WBC >182 H (0-5) /hpf Urine WBC Clumps Many H (None) /hpf Ur Squamous Epith Cells 8 H (0-4) /hpf Urine Bacteria Few H (None) /hpf Urine Mucus Many H (None) /hpf Urine HCG, Qual Not Detected (Not Detectd) 05/28/21 Range/Units 04:39 WBC (3.8-10.6) k/uL RBC (3.80-5.40) m/uL Hgb (11.4-16.0) gm/dL Hct (34.0-46.0) % MCV (80.0-100.0) fL MCH (25.0-35.0) pg MCHC (31.0-37.0) g/dL RDW (11.5-15.5) % Plt Count (150-450) k/uL MPV Neutrophils % % Lymphocytes % % Monocytes % % Eosinophils % % Basophils % % Neutrophils # (1.3-7.7) k/uL Lymphocytes # (1.0-4.8) k/uL Monocytes # (0-1.0) k/uL Eosinophils # (0-0.7) k/uL Basophils # (0-0.2) k/uL Sodium 136 L (137-145) mmol/L Potassium 3.7 (3.5-5.1) mmol/L Chloride 107 (98-107) mmol/L Carbon Dioxide 19 L (22-30) mmol/L Anion Gap 10 mmol/L BUN 17 (7-17) mg/dL Creatinine 0.80 (0.52-1.04) mg/dL Est GFR (CKD-EPI)AfAm >90 (>60 ml/min/1.73 sqM) Est GFR (CKD-EPI)NonAf >90 (>60 ml/min/1.73 sqM) Glucose 151 H (74-99) mg/dL Calcium 10.1 (8.4-10.2) mg/dL Total Bilirubin 0.7 (0.2-1.3) mg/dL AST 27 (14-36) U/L ALT 17 (4-34) U/L Alkaline Phosphatase 63 (38-126) U/L Total Protein 6.7 (6.3-8.2) g/dL Albumin 4.2 (3.5-5.0) g/dL Amylase 62 (30-110) U/L Lipase 44 (23-300) U/L Urine Color Urine Appearance (Clear) Urine pH (5.0-8.0) Ur Specific [place] (1.001-1.035) Urine Protein (Negative) Urine Glucose (UA) (Negative) Urine Ketones (Negative) Urine Blood (Negative) Urine Nitrite (Negative) Urine Bilirubin (Negative) Urine Urobilinogen (<2.0) mg/dL Ur Leukocyte Esterase (Negative) Urine RBC (0-5) /hpf Urine WBC (0-5) /hpf Urine WBC Clumps (None) /hpf Ur Squamous Epith Cells (0-4) /hpf Urine Bacteria (None) /hpf Urine Mucus (None) /hpf Urine HCG, Qual (Not Detectd) Disposition Clinical Impression: Urinary tract infection, Kidney stone on right side Disposition: ADMITTED IP TO THIS HOSP Condition: Fair
[2021-05-28] MEDS: FAMOTIDINE 20 MG TAB PO SCH ×2 (09:32→22:45)
[2021-05-28] MEDS: SODIUM CHLORIDE 0.9% 1,000 ML IV SCH ×2 (09:33→21:16)
[2021-05-28] MEDS: HYDROmorphone 0.5 MG/0.5 ML SYRINGE IVP PRN ×2 (09:39→13:08)
[2021-05-28] MEDS: KETOROLAC 15 MG/ML 1 ML VIAL IVP PRN ×2 (15:57→22:52)
[2021-05-28] MEDS: NICOTINE 21MG/24HR PATCH TRANSDERM SCH (15:58)
--- NOTE | 2021-05-28 19:00 | P.GSHP ---
History of Present Illness H&P Date: 05/28/21 This is a 40-year-old female history of a 7 mm right-sided distal ureteral stone, she's been dealing with the stone since March of this year, CT at that time showed the stone to be within the proximal ureter. She presented to the ER with intractable pain that is associated with nausea and vomiting. On presentation her UA was concerning for UTI. She denies any fevers, chills, gross hematuria or dysuria area no previous history of stones - Constitutional Constitutional: Denies chills, Denies fever - Cardiovascular Cardiovascular: Denies chest pain, Denies shortness of breath - Respiratory Respiratory: Denies cough, Denies 7 - Gastrointestinal Gastrointestinal: Reports abdominal pain, Reports nausea, Reports vomiting - Genitourinary (Female) Genitourinary: Reports flank pain - Musculoskeletal Musculoskeletal: Denies myalgias - Integumentary Integumentary: Denies pruritus, Denies rash - Neurological Neurological: Denies numbness, Denies weakness Past Medical History Past Medical History: Musculoskeletal Disorder Additional Past Medical History / Comment(s): AA in 2018-fx. femur History of Any Multi-Drug Resistant Organisms: None Reported Past Surgical History: Appendectomy, Orthopedic Surgery Additional Past Surgical History / Comment(s): ORIF right femur & hip Past Anesthesia/Blood Transfusion Reactions: No Reported Reaction Past Psychological History: Depression, PTSD Smoking Status: Current every day smoker Past Alcohol Use History: None Reported Additional Past Alcohol Use History / Comment(s): down to 6-7 cigs/day for 20 yrs. Past Drug Use History: None Reported Additional Drug Use History / Comment(s): Pt reports she has polysubstance abuse since the age of 20 - Past Family History Mother Family Medical History: Diabetes Mellitus Father Family Medical History: Diabetes Mellitus Medications and Allergies Home Medications Medication Instructions Recorded Confirmed Type Buprenorphine HCl/Naloxone HCl 1 film SUBLINGUAL BID 05/28/21 05/28/21 History [Suboxone 8 mg-2 mg Sl Film] Allergies Allergy/AdvReac Type Severity Reaction Status Date / Time No Known Allergies Allergy Verified 05/28/21 04:23 Surgical - Exam Vital Signs Temp Pulse Resp BP Pulse Ox 97.2 F L 85 18 146/77 100 05/28/21 04:09 05/28/21 04:09 05/28/21 04:09 05/28/21 04:09 05/28/21 04:09 - General moderate distress, severe pain - Eyes PERRL, normal ocular movement - ENT normal nares, normal mucosa - Respiratory normal expansion, normal respiratory effort - Abdomen Abdomen: soft, non tender - Psychiatric oriented to time, oriented to person, oriented to place, speech is normal Results - Labs 05/28/21 04:39 05/28/21 04:39 Abnormal Lab Results - Last 24 Hours (Table) 05/28/21 05/28/21 05/28/21 Range/Units 04:39 04:39 04:39 WBC 16.0 H (3.8-10.6) k/uL Neutrophils # 14.7 H (1.3-7.7) k/uL Lymphocytes # 0.6 L (1.0-4.8) k/uL Sodium 136 L (137-145) mmol/L Carbon Dioxide 19 L (22-30) mmol/L Glucose 151 H (74-99) mg/dL Urine Appearance Turbid H (Clear) Urine Protein 1+ H (Negative) Urine Ketones 4+ H (Negative) Urine Blood Large H (Negative) Urine Nitrite Positive H (Negative) Ur Leukocyte Esterase Large H (Negative) Urine RBC >182 H (0-5) /hpf Urine WBC >182 H (0-5) /hpf Urine WBC Clumps Many H (None) /hpf Ur Squamous Epith Cells 8 H (0-4) /hpf Urine Bacteria Few H (None) /hpf Urine Mucus Many H (None) /hpf Microbiology - Last 24 Hours (Table) 05/28/21 04:39 Urine Culture - Preliminary Urine,Voided Diabetes panel 05/28/21 Range/Units 04:39 Sodium 136 L (137-145) mmol/L Potassium 3.7 (3.5-5.1) mmol/L Chloride 107 (98-107) mmol/L Carbon Dioxide 19 L (22-30) mmol/L BUN 17 (7-17) mg/dL Creatinine 0.80 (0.52-1.04) mg/dL Glucose 151 H (74-99) mg/dL Calcium 10.1 (8.4-10.2) mg/dL AST 27 (14-36) U/L ALT 17 (4-34) U/L Alkaline Phosphatase 63 (38-126) U/L Total Protein 6.7 (6.3-8.2) g/dL Albumin 4.2 (3.5-5.0) g/dL Calcium panel 05/28/21 Range/Units 04:39 Calcium 10.1 (8.4-10.2) mg/dL Albumin 4.2 (3.5-5.0) g/dL Pituitary panel 05/28/21 Range/Units 04:39 Sodium 136 L (137-145) mmol/L Potassium 3.7 (3.5-5.1) mmol/L Chloride 107 (98-107) mmol/L Carbon Dioxide 19 L (22-30) mmol/L BUN 17 (7-17) mg/dL Creatinine 0.80 (0.52-1.04) mg/dL Glucose 151 H (74-99) mg/dL Calcium 10.1 (8.4-10.2) mg/dL Adrenal panel 05/28/21 Range/Units 04:39 Sodium 136 L (137-145) mmol/L Potassium 3.7 (3.5-5.1) mmol/L Chloride 107 (98-107) mmol/L Carbon Dioxide 19 L (22-30) mmol/L BUN 17 (7-17) mg/dL Creatinine 0.80 (0.52-1.04) mg/dL Glucose 151 H (74-99) mg/dL Calcium 10.1 (8.4-10.2) mg/dL Total Bilirubin 0.7 (0.2-1.3) mg/dL AST 27 (14-36) U/L ALT 17 (4-34) U/L Alkaline Phosphatase 63 (38-126) U/L Total Protein 6.7 (6.3-8.2) g/dL Albumin 4.2 (3.5-5.0) g/dL Assessment and Plan Assessment: 40-year-old female 7 mm right-sided distal ureteral stone, presented with intractable pain, her UA was concerning for UTI. Discussed With her given her symptoms, and the presence of UTI I recommend proceeding with stent placement. Discussed with her the risk of bleeding infection and injury to the ureter. Discussed with her this is not a definitive way to manage the stone, and she will require definitive stone management after her infection is cleared Plan: Keep nothing by mouth OR for right-sided stent placement
[2021-05-28] MEDS ORDERED: fentaNYL (PF) 50 MCG/ML 2 ML AMP ONE (19:05)
[2021-05-28] MEDS ORDERED: MIDAZOLAM 2 MG/2 ML VIAL ONE (19:05)
[2021-05-28] MEDS ORDERED: PROPOFOL 10 MG/ML 20 ML VIAL IV ONE (19:05)
[2021-05-28] MEDS ORDERED: IV FLUID CONTINUATION 200 ML IV ONE (19:16)
[2021-05-28] MEDS ORDERED: SODIUM CHLORIDE 0.9% 50 ML with GENTAMICIN 80 MG IV ONE ×2 (19:21)
[2021-05-28] MEDS ORDERED: LACTATED RINGERS 1,000 ML IV ONE (19:25)
--- NOTE | 2021-05-28 19:38 | P.OP ---
Date of Procedure: 05/28/21 Preoperative Diagnosis: Right ureteral stone Postoperative Diagnosis: Same Procedure(s) Performed: Cystoscopy right stent placement Implants: 6-German by 24 cm stent Anesthesia: PATRICIA Surgeon: Leonel Lay Estimated Blood Loss (ml): 0 Pathology: none sent Condition: stable Disposition: PACU Indications for Procedure: 40-year-old female 7 mm right-sided distal ureteral stone, presented with intractable pain, her UA was concerning for UTI. Discussed With her given her symptoms, and the presence of UTI I recommend proceeding with stent placement. Discussed with her the risk of bleeding infection and injury to the ureter. Discussed with her this is not a definitive way to manage the stone, and she will require definitive stone management after her infection is cleared Description of Procedure: Patient was brought to the operating room, sedation was induced. She was prepped and draped in sterile fashion and placed in dorsal lithotomy position. A cystoscopy fitted 22-German sheath was inserted per urethra, cystoscopy was performed which showed no abnormality within the bladder. Attention was then carried to the right ureteral orifice which was intubated with a sensor wire. Next a ureteral stent was passed over the wire, the proximal curl was visualized on fluoroscopy and the distal curl was visualized using the cystoscope. Cloudy urine was drained from the collecting system. The patient was awakened from anesthesia and taken to recovery in stable condition
[2021-05-29 02:54] VITALS: RESP 16; TEMP 98.5
--- NOTE | 2021-05-29 06:49 | FL ---
EXAMINATION TYPE: FL guidance operating room DATE OF EXAM: 05/28/2021 CLINICAL HISTORY: Distal right ureter calculus TECHNIQUE: Fluoroscopy. COMPARISON: CT abdomen and pelvis earlier today. FINDINGS: Fluoroscopic guidance was provided during right ureter stent insertion procedure performed by Dr. Villagomez. A total of 3.2 seconds of fluoroscopic time was utilized during the procedure and 1 spot images was acquired. Images acquired shows portion of the proximal right ureter stent. IMPRESSION: As Above.
[2021-05-29] MEDS: HYDROmorphone 0.5 MG/0.5 ML SYRINGE IVP PRN (07:41)
[2021-05-29] MEDS: NICOTINE 21MG/24HR PATCH TRANSDERM SCH (07:41)
[2021-05-29] MEDS: FAMOTIDINE 20 MG TAB PO SCH (07:44)
[2021-05-29] MEDS: SODIUM CHLORIDE 0.9% 1,000 ML IV SCH (07:47)
[2021-05-29 08:31] VITALS: BP 117/78; PULSE 82
--- NOTE | 2021-05-29 10:42 | P.DS ---
Providers Date of admission: 05/28/21 06:33 Attending physician: Leonel Lay MD Primary care physician: Stated None Hospital Course: 32-year-old female history of a 7 mm right-sided distal ureter stone. She was admitted to the hospital on May 28 secondary to pain and a UTI. She was taken to the OR on May 28 for a stent placement, please see op note dated May 28 for surgery detail. She did well in the postoperative period. She was discharged home on postoperative day #1, she will be scheduled for a ureteroscopy once her UTI resolves. At time of discharge she was tolerating a diet, ambulating, and pain was well-controlled Patient Condition at Discharge: Fair Plan - Discharge Summary Discharge Rx Participant: Yes New Discharge Prescriptions: New Cephalexin [Keflex] 500 mg PO Q8HR #21 cap Ketorolac [Toradol] 10 mg PO Q6HR PRN #15 tab PRN Reason: Pain No Action Buprenorphine HCl/Naloxone HCl [Suboxone 8 mg-2 mg Sl Film] 1 film SUBLINGUAL BID Discharge Medication List Buprenorphine HCl/Naloxone HCl [Suboxone 8 mg-2 mg Sl Film] 1 film SUBLINGUAL BID 05/28/21 [History] Cephalexin [Keflex] 500 mg PO Q8HR #21 cap 05/29/21 [Rx] Ketorolac [Toradol] 10 mg PO Q6HR PRN #15 tab 05/29/21 [Rx] Follow up Appointment(s)/Referral(s): None,Stated [Primary Care Provider] - 1 Week Activity/Diet/Wound Care/Special Instructions: increase fluid intake It is normal to see blood in the urine you will be contacted to arrange your surgery Discharge Disposition: HOME SELF-CARE
[2021-05-29] MEDS: KETOROLAC 15 MG/ML 1 ML VIAL IVP PRN (10:56)
== END 2021-05-29 11:20 | disposition home or self-care (01) ==
LOC: EC 03:57 → INTOOBSV 06:33 → 6PED 06:33 → UNDODISIN 05-29 11:20
PROVIDERS: ADMIT Urology; ATTEND Urology
PROC: 0T768DZ Dilation of Right Ureter with Intraluminal Device, Via Natural or Artificial Opening Endoscopic (ICD-10-PCS; principal; 2021-05-28 11:20)
DX: N13.6 Pyonephrosis (principal); F32.9 Major depressive disorder, single episode, unspecified; F43.10 Post-traumatic stress disorder, unspecified; F11.20 Opioid dependence, uncomplicated; F17.210 Nicotine dependence, cigarettes, uncomplicated; F19.11 Other psychoactive substance abuse, in remission; Z20.822 Contact with and (suspected) exposure to COVID-19; Z87.81 Personal history of (healed) traumatic fracture; Z90.49 Acquired absence of other specified parts of digestive tract; Z98.890 Other specified postprocedural states; Z83.3 Family history of diabetes mellitus
CPT/HCPCS: 96376; 96361; 96374; 96375; 99285; 36415; 80053; 82150; 83690; 85025; 81001; 81025; 87086; 87077; 87186; 87635; 74176; 52332; G0378 ×2; C2625; C1769 ×3; S4990 ×2; J2250; J1580; J2405; J0696 ×2; J3010; J1885 ×2; J2704; J1170 ×2; 96365; 96366

== ENCOUNTER 2021-06-05 11:48 | Day surgery (SDC) | payer OTHER ==
[2021-06-03 09:11] VITALS: BMI 25.8
[~2021-06-05 11:48] MED LIST changes: +ACETAMINOPHEN IV (For NPO) 1,000 MG in EMPTY BAG 1 BAG IVPB STA; -DEXAMETHASONE SOD PHOSPHATE 10 MG/ML 1 ML VIAL IV ONE; +DEXAMETHASONE SOD PHOSPHATE 4 MG/ML 1 ML VIAL IV ONE; +HYDROmorphone 0.5 MG/0.5 ML SYRINGE IVP PRN; +MIDAZOLAM 2 MG/2 ML VIAL IV PRN; -Pre Op ABX Message 1 EACH MISC MISCELLANE ONE
--- NOTE | 2021-06-05 12:11 | XR ---
EXAMINATION TYPE: XR KUB DATE OF EXAM: 06/05/2021 Comparison: 05/28/2021 Clinical History: 40-year-old female KIDNEY STONES. Preoperative for right ureteral calculus. Findings: a a couple 9 mm nonobstructive right upper pole renal calculi. Colonic stool largely obscures the rig ht renal shadow otherwise. Right ureteral stent is in place. There is a vague 6 mm calcification proj ecting on the distal right ureteral stent, possibly retained ureteric calculus. Vague 3 mm calculus l eft kidney. Moderate stool burden. No dilated small bowel loops. Bilateral tubal ligation clips. Partially visualized intertan nailing with hip screw fixation proximal right femur. Impression: 1. Right ureteral stent. Possible subtle 6 mm distal right ureteral calculus projecting over the sten t. 2. A couple 9 mm nonobstructive right upper pole renal calculi. 3. Vague 3 mm left renal calculus. 4. Moderate stool burden.
--- NOTE | 2021-06-05 13:44 | P.HPIHPCON ---
History of Present Illness H&P Date: 06/05/21 Chief Complaint: Right sided ureteral stone This is a 40-year-old female with history of an 8 mm right-sided distal stone, she underwent stent placement on May 28, she had a UTI that time and continue the antibiotics. She presents today for right-sided ureteroscopy. Di scussed with her the risk which includes but not limited to bleeding, infection, injury to the ureter. Of note she also had stones within the diverticulum in the right kidney, but she's a systematic from the stones, she was agreeable observation will stones. She understood all the risk and agreed to proceed with right-sided ureteroscopy, with holmium laser lithotripsy, stone basketing and stent removal Consent for Procedure: I have explained the operation/procedure to the patient, including the risks, benefits, side effects, alternative therapies (including not receiving the proposed treatment or service), the likelihood of the patient achieving his/her goals, and potential recuperation problems for the procedure/sedation/analgesia, as well as any blood products, if indicated. I also explained to the patient the risks, benefits and side effects of the alternatives, as well as the risks related to not receiving the proposed procedure, care, treatment, or services. - Constitutional Constitutional: Denies chills, Denies fever - EENT Eyes: denies blurred vision, denies pain - Cardiovascular Cardiovascular: Denies chest pain, Denies shortness of breath - Respiratory Respiratory: Denies cough, Denies 7 - Gastrointestinal Gastrointestinal: Denies abdominal pain, Denies diarrhea, Denies nausea, Denies vomiting - Genitourinary (Female) Genitourinary: Reports flank pain Past Medical History Past Medical History: Musculoskeletal Disorder Additional Past Medical History / Comment(s): 2018-fx. femur-RT. KIDNEY STONES-FINISHED ANTIOBIOTICS TODAY FOR ABN. URINE History of Any Multi-Drug Resistant Organisms: Other MDRO Date of last positivie culture/infection: 05/28/21 MDRO Source:: URINE Past Surgical History: Appendectomy, Orthopedic Surgery, Tubal Ligation Additional Past Surgical History / Comment(s): ORIF right femur & hip. RT URETERAL STENT 05/28/21 Past Anesthesia/Blood Transfusion Reactions: No Reported Reaction Smoking Status: Current every day smoker - Past Family History Mother Family Medical History: Diabetes Mellitus Father Family Medical History: Diabetes Mellitus Medications and Allergies Home Medications Medication Instructions Recorded Confirmed Type Buprenorphine HCl/Naloxone HCl 1 film SUBLINGUAL BID 05/28/21 06/05/21 History [Suboxone 8 mg-2 mg Sl Film] Cephalexin [Keflex] 500 mg PO Q8HR #21 cap 05/29/21 06/05/21 Rx Ketorolac [Toradol] 10 mg PO Q6HR PRN #15 tab 05/29/21 06/05/21 Rx Allergies Allergy/AdvReac Type Severity Reaction Status Date / Time No Known Allergies Allergy Verified 06/05/21 12:40 Surgical - Exam - General well developed, well nourished, no distress, no pain - Eyes PERRL, normal ocular movement - ENT normal nares, normal mucosa - Respiratory normal expansion, normal respiratory effort - Abdomen Abdomen: soft, non tender - Psychiatric oriented to time, oriented to person, oriented to place Assessment and Plan Assessment: 40 -year-old female right-sided distal ureteral stones -OR for right-sided ureteroscopy, with holmium laser lithotripsy, stone basketing and stent removal
[2021-06-05] MEDS ORDERED: KETOROLAC 15 MG/ML 1 ML VIAL ONE (13:49)
[2021-06-05] MEDS ORDERED: PROPOFOL 10 MG/ML 20 ML VIAL IV ONE (13:49)
[2021-06-05] MEDS ORDERED: MIDAZOLAM 2 MG/2 ML VIAL ONE (13:49)
[2021-06-05] MEDS ORDERED: LIDOCAINE 1% INJ 10MG/ML (20 ML MDV) ONE (13:49)
[2021-06-05] MEDS ORDERED: SUCCINYLCHOLINE CHLORIDE 100 MG/5 ML SYR IV ONE (13:49)
[2021-06-05] MEDS ORDERED: PHENYLEPHRINE-0.9% NACL SYG 1,000 MCG/10 ML SYRINGE ONE (13:49)
[2021-06-05] MEDS ORDERED: ACETAMINOPHEN IV (For NPO) 1,000 MG/100 ML VIAL ONE (13:49)
[2021-06-05] MEDS ORDERED: IOPAMIDOL-370 50ML BTL IRRIGATION ONE (14:12)
[2021-06-05 14:41] VITALS: TEMP 97
--- NOTE | 2021-06-05 14:42 | P.OP ---
Date of Procedure: 06/05/21 Preoperative Diagnosis: Right-sided ureteral stone Postoperative Diagnosis: Same Procedure(s) Performed: Cystoscopy, Right-sided ureteroscopy, retrograde pyelogram holmium laser lithotripsy, stone basketing and stent removal Implants: None Anesthesia: PATRICIA Surgeon: Leonel Lay Estimated Blood Loss (ml): 1 Pathology: other (right ureteral stone) Condition: stable Disposition: PACU Indications for Procedure: This is a 40-year-old female with history of an 8 mm right-sided distal stone, she underwent stent placement on May 28, she had a UTI that time and continue the antibiotics. She presents today for right-sided ureteroscopy. Discussed with her the risk which includes but not limited to bleeding, infection, injury to the ureter. Of note she also had stones within the diverticulum in the right kidney, but she's a systematic from the stones, she was agreeable observation will stones. She understood all the risk and agreed to proceed with right-sided ureteroscopy, with holmium laser lithotripsy, stone basketing and stent removal Operative Findings: Right sided distal ureteral stone Description of Procedure: Patient was brought to the operating room, general anesthesia was induced. She was prepped and draped in sterile fashion and placed in dorsal lithotomy position. Cystoscopy fitted with a 21-[place] sheath was inserted per urethra, using the stent grasper the stent was removed intact. Next a semirigid ureteroscope was advanced up the urethra and up the right ureteral orifice, a stone was encountered in the distal ureter. Using the holmium laser the stone was fragmented into small fragments, sizable fragments were removed using a stone basket. Repeat ureteroscopy showed no additional ureteral fragments, or injury to the ureter. The ureteroscope was advanced all the way up to the UPJ which showed no additional fragments or stones. Retrograde pyelogram was performed through the ureteroscopy which showed no additional filling defect within the kidney. Of note it did confirm the finding of an upper pole diverticulum. Pullback ureteroscopy was performed showed no injury to the ureter or any sizable fragments. The bladder was emptied at the end of the c ase, the stones were sent for analysis. She tolerated the procedure well was taken to recovery in stable condition
[2021-06-05 15:59] VITALS: BP 126/76; PULSE 78; RESP 20
--- NOTE | 2021-06-05 16:57 | FL ---
EXAMINATION TYPE: FL guidance operating room DATE OF EXAM: 06/05/2021 FLUOROSCOPY Fluoroscopy time of 6 seconds was used during urologic intervention for right ureteral stone. 3 imag e/s document/s the procedure.
== END 2021-06-05 16:30 | disposition home or self-care (01) ==
LOC: OR 11:48
PROVIDERS: ATTEND Urology
DX: N20.2 Calculus of kidney with calculus of ureter (principal)
CPT/HCPCS: 52353; 81025; 82365; 74018; C1769; J2250; J1100; J0690; J2405; J2001; J0131; J1885; J2370; J0330; J2704; Q9967

== ENCOUNTER 2022-01-08 07:07 | Day surgery (SDC) | payer OTHER ==
--- NOTE | 2022-01-07 16:35 | P.HPOB ---
History of Present Illness H&P Date: 01/07/22 Chief Complaint: menorrhagia 41 year old presents for D&C hysteroscopy and endometrial ablation with Novasure. Review of Systems All systems: negative Constitutional: Denies chills, Denies fever Eyes: denies blurred vision, denies pain Ears, nose, mouth and throat: Denies headache, Denies sore throat Cardiovascular: Denies chest pain, Denies shortness of breath Respiratory: Denies cough Gastrointestinal: Denies abdominal pain, Denies diarrhea, Denies nausea, Denies vomiting Genitourinary: Denies dysuria, Denies hematuria Musculoskeletal: Denies myalgias Integumentary: Denies pruritus, Denies rash Neurological: Denies numbness, Denies weakness Psychiatric: Denies anxiety, Denies depression Endocrine: Denies fatigue, Denies weight change Past Medical History Past Medical History: Musculoskeletal Disorder Additional Past Medical History / Comment(s): 2018-fx. femur-R, hx. kidney stones, heavy frequent periods History of Any Multi-Drug Resistant Organisms: Other MDRO Date of last positivie culture/infection: 05/28/21 MDRO Source:: URINE Past Surgical History: Appendectomy, Orthopedic Surgery, Tubal Ligation Additional Past Surgical History / Comment(s): ORIF right femur & hip,. RT URETERAL STENT 05/28/21 Past Anesthesia/Blood Transfusion Reactions: No Reported Reaction Smoking Status: Current every day smoker - Past Family History Mother Family Medical History: Diabetes Mellitus Father Family Medical History: Diabetes Mellitus Medications and Allergies Home Medications Medication Instructions Recorded Confirmed Type Buprenorphine HCl/Naloxone HCl 1 film SUBLINGUAL TID 05/28/21 01/06/22 History [Suboxone 8 mg-2 mg Sl Film] Allergies Allergy/AdvReac Type Severity Reaction Status Date / Time No Known Allergies Allergy Verified 01/06/22 15:11 Exam Osteopathic Statement: *. No significant issues noted on an osteopathic structural exam other than those noted in the History and Physical/Consult. Heart: Regular rate and rhythm Lungs: Clear to auscultation bilaterally Abdomen: Soft, nontender Extremities: Negative Homans sign Assessment and Plan (1) Menorrhagia Status: Acute Code(s): N92.0 - EXCESSIVE AND FREQUENT MENSTRUATION WITH REGULAR CYCLE SNOMED Code(s): 902343534 Plan: 1. D&C hysteroscopy and endometrial ablation with NovaSure
[~2022-01-08 07:07] MED LIST changes: -ACETAMINOPHEN IV (For NPO) 1,000 MG in EMPTY BAG 1 BAG IVPB STA; -HYDROmorphone 0.5 MG/0.5 ML SYRINGE IVP PRN; -LACTATED RINGERS 1,000 ML IV SCH; +Pre Op ABX Message 1 EACH MISC MISCELLANE ONE
[2022-01-08] MEDS: LACTATED RINGERS 1,000 ML IV SCH ×2 (07:49→09:08)
[2022-01-08] MEDS ORDERED: MIDAZOLAM 2 MG/2 ML VIAL IVP ONE (07:51)
[2022-01-08] MEDS ORDERED: PROPOFOL 10 MG/ML 20 ML VIAL IV ONE (07:53)
[2022-01-08] MEDS ORDERED: LIDOCAINE 2% INJ 20 MG/ML (2 ML VIAL) ONE (07:53)
[2022-01-08] MEDS ORDERED: KETAMINE 10 MG/ML 20 ML VIAL ONE (07:53)
[2022-01-08] MEDS ORDERED: fentaNYL (PF) 50 MCG/ML 2 ML AMP ONE (07:53)
--- NOTE | 2022-01-08 08:33 | P.OP ---
Date of Procedure: 01/08/22 Preoperative Diagnosis: 1. menorrhagia Postoperative Diagnosis: 1. menorrhagia Procedure(s) Performed: D&C, hysteroscopy, endometrial ablation with NovaSure Anesthesia: MAC Surgeon: Ernestina Jones Estimated Blood Loss (ml): 5 IV fluids (ml): 500 Urine output (ml): 10 Pathology: other (Endometrial curettings) Condition: stable Disposition: PACU Operative Findings: Uterus sounded to 9 cm. Cavity length 6.5 cm, width 4.2 cm, power 150 W, time of ablation 37 seconds. Adequate ablation after NovaSure noted. Description of Procedure: Patient is taken the operating room where general anesthesia was obtained without difficulty. She was prepped and draped in normal sterile fashion dorsal lithotomy position, legs placed in the candy cane stirrups. Bladder was drained of all urine. Weighted speculum placed in the vagina and the anterior lip the cervix was grasped with serial tooth tenaculum. The uterus sounded to 9 cm and the cervix under 2.5 cm making the cavity length 6.5 cm. The cervix was dilated to #8 Hegar dilator. Hysteroscopy was then performed. Both ostia were visualized and there was a smooth contour of the uterus. Sharp curet was then gently used to obtain endometrial curettings. The NovaSure was introduced into the uterus with a cavity length of 6.5 cm, width 4.2 cm. after cavity assessment was passed, the time of ablation was 37 seconds at 150 W. Hysteroscopy was aga in performed and adequate ablation was noted. All instruments removed from the vagina. Patient tolerated the procedure well, sponge and instrument counts were correct 2 and she was taken to recovery in stable condition.
[2022-01-08 08:36] VITALS: TEMP 97.2
[2022-01-08] MEDS: HYDROmorphone 0.5 MG/0.5 ML SYRINGE IVP PRN ×3 (08:46→09:55)
[2022-01-08] MEDS ORDERED: ACETAMINOPHEN TAB 500 MG TAB ONE (09:51)
[2022-01-08] MEDS ORDERED: ACETAMINOPHEN TAB 500 MG TAB PO ONE (09:54)
[2022-01-08 10:01] VITALS: RESP 16
[2022-01-08 10:07] VITALS: BP 123/73; PULSE 72
== END 2022-01-08 10:48 | disposition home or self-care (01) ==
LOC: OR 07:07
PROVIDERS: ATTEND Obstetrics & Gynecology
DX: N92.0 Excessive and frequent menstruation with regular cycle (principal); Z87.442 Personal history of urinary calculi; Z86.19 Personal history of other infectious and parasitic diseases; Z90.49 Acquired absence of other specified parts of digestive tract; Z98.51 Tubal ligation status; Z98.890 Other specified postprocedural states; F17.200 Nicotine dependence, unspecified, uncomplicated
CPT/HCPCS: 81025; 88305; 58563; J2250; J1100; J2405; J3010; J2704; J1170; J2001

== ENCOUNTER 2023-05-01 21:17 | Emergency (ER) | payer OTHER ==
[2023-05-01 21:29] VITALS: RESP 18; TEMP 97.9
[2023-05-01] MEDS ORDERED: ONDANSETRON 4 MG/2 ML VIAL IVP STA (21:37)
[2023-05-01] MEDS ORDERED: KETOROLAC 15 MG/ML 1 ML VIAL IVP STA (21:37)
[2023-05-01 22:11] LABS: Basophils % (A) 0 %; Eosinophils # (A) 0.2 k/uL (0-0.7); Eosinophils % (A) 2 %; HCT 42.3 % (34.0-46.0); HGB 14.4 gm/dL (11.4-16.0); Lymphocytes # (A) 2.7 k/uL (1.0-4.8); Lymphocytes % (A) 27 %; MCH 29.5 pg (25.0-35.0); MCHC 33.9 g/dL (31.0-37.0); MCV 86.9 fL (80.0-100.0); Mean Platelet Volume 8.1; Monocytes # (A) 0.5 k/uL (0-1.0); Monocytes % (A) 5 %; Neutrophils # (A) 6.2 k/uL (1.3-7.7); Neutrophils % (A) 64 %; Platelet Count 297 k/uL (150-450); RBC 4.87 m/uL (3.80-5.40); RDW 12.9 % (11.5-15.5); WBC 9.6 k/uL (3.8-10.6)
[2023-05-01 22:16] LABS: ALT 27 U/L (4-34); AST 29 U/L (14-36); African American GFR (CKD) >90 (>60 ml/min/1.73 sqM); Albumin 4.7 g/dL (3.5-5.0); Alkaline Phosphatase 67 U/L (38-126); Anion Gap 13 mmol/L; Blood Urea Nitrogen 12 mg/dL (7-17); Calcium 10.4 mg/dL (8.4-10.2); Carbon Dioxide 21 mmol/L (22-30); Chloride 103 mmol/L (98-107); Glucose 106 mg/dL (74-99); Non-African American GFR(CKD) >90 (>60 ml/min/1.73 sqM); Potassium 2.8 mmol/L (3.5-5.1); Sodium 137 mmol/L (137-145); Total Bilirubin 0.5 mg/dL (0.2-1.3); Total Protein 7.4 g/dL (6.3-8.2)
[2023-05-01 22:43] LABS: Appearance,Urine Turbid (Clear); Bacteria,Urine Few /hpf; Bilirubin,Urine Negative (Negative); Blood,Urine Small (Negative); Color,Urine Yellow; Glucose,Urine (UA) Negative (Negative); Ketones,Urine 1+ (Negative); Leukocyte Esterase,Urine Large (Negative); Mucus,Urine Rare /hpf; Nitrite,Urine Negative (Negative); Protein,Urine Trace (Negative); RBC,Urine 2 /hpf (0-5); Specific Gravity,Urine 1.024 (1.001-1.035); Squamous Epithelial Cell,Urine 34 /hpf (0-4); Urobilinogen,Urine <2.0 mg/dL (<2.0); WBC,Urine >182 /hpf (0-5)
--- NOTE | 2023-05-02 00:05 | CT ---
EXAM: CT Abdomen and Pelvis Without Intravenous Contrast CLINICAL HISTORY: ITS.REASON CT Reason: flank pain TECHNIQUE: Axial computed tomography images of the abdomen and pelvis without intravenous contrast. CTDI is 6.8 mGy and DLP is 387 mGy-cm. This CT exam was performed using one or more of the following dose reduction techniques: automated exposure control, adjustment of the mA and/or kV according to patient size, and/or use of iterative reconstruction technique. COMPARISON: No relevant prior studies available. FINDINGS: Lung bases: Unremarkable. No mass. No consolidation. ABDOMEN: Liver: Unremarkable. Gallbladder and bile ducts: Unremarkable. No calcified stones. No ductal dilation. Pancreas: Unremarkable. No ductal dilation. Spleen: Unremarkable. No splenomegaly. Adrenals: Unremarkable. No mass. Kidneys and ureters: Nonobstructing bilateral renal calculi. 2 calcifications in the RIGHT upper cortex of the RIGHT kidney measures 8 mm and 7 mm. No obstructive uropathy. Stomach and bowel: Unremarkable. No obstruction. No mucosal thickening. PELVIS: Appendix: No findings to suggest acute appendicitis. Bladder: Unremarkable. No stones. Reproductive: Unremarkable as visualized. ABDOMEN and PELVIS: Intraperitoneal space: Unremarkable. No free air. No significant fluid collection. Bones/joints: RIGHT hip ORIF. No acute fracture. No dislocation. Soft tissues: Unremarkable. Vasculature: Unremarkable. No abdominal aortic aneurysm. Lymph nodes: Unremarkable. No enlarged lymph nodes. IMPRESSION: Nonobstructing bilateral renal calculi. No obstructive uropathy.
[2023-05-02] MEDS ORDERED: POTASSIUM CHLORIDE ER 20 MEQ TAB.ER PO STA (00:10)
--- NOTE | 2023-05-02 00:34 | ED ---
Abdominal Pain HPI - General Chief Complaint: Abdominal Pain Stated Complaint: Abd pain,vomitting Time Seen by Provider: 05/01/23 21:30 Source: patient Mode of arrival: wheelchair Limitations: no limitations - History of Present Illness Initial Comments: 42-year-old female presenting with chief complaint of right-sided abdominal pain. She has history of kidney stones and states this feels similar. No dysuria or hematuria. She admits to nausea and vomiting. No fevers or chills. Pain started earlier tonight. - Related Data Home Medications Medication Instructions Recorded Confirmed Buprenorphine HCl/Naloxone HCl 1 film SUBLINGUAL TID 05/28/21 01/08/22 [Suboxone 8 mg-2 mg Sl Film] Previous Rx's Medication Instructions Recorded Ibuprofen [Motrin] 600 mg PO Q6HR PRN #30 tab 01/08/22 Cephalexin [Keflex] 500 mg PO Q12HR 14 Days #28 cap 05/02/23 Ketorolac [Toradol] 10 mg PO Q6HR PRN #12 tab 05/02/23 Ondansetron Odt [Zofran Odt] 4 mg PO Q8HR PRN #20 tab 05/02/23 Potassium Chloride ER [K-Dur 20] 20 meq PO DAILY 5 Days #5 tab 05/02/23 Allergies Allergy/AdvReac Type Severity Reaction Status Date / Time No Known Allergies Allergy Verified 05/01/23 21:27 Review of Systems ROS Statement: Those systems with pertinent positive or pertinent negative responses have been documented in the HPI. ROS Other: All systems not noted in ROS Statement are negative. Past Medical History Past Medical History: Musculoskeletal Disorder Additional Past Medical History / Comment(s): 2018-fx. femur-R, hx. kidney stones, heavy frequent periods History of Any Multi-Drug Resistant Organisms: Other MDRO Date of last positivie culture/infection: 05/28/21 MDRO Source:: URINE Past Surgical History: Appendectomy, Orthopedic Surgery, Tubal Ligation Additional Past Surgical History / Comment(s): ORIF right femur & hip,. RT URETERAL STENT 05/28/21 Past Anesthesia/Blood Transfusion Reactions: No Reported Reaction Past Psychological History: Depression, PTSD Smoking Status: Current every day smoker Past Alcohol Use History: None Reported Past Drug Use History: None Reported - Past Family History Mother Family Medical History: Diabetes Mellitus Father Family Medical History: Diabetes Mellitus General Exam Limitations: no limitations General appearance: alert, in no apparent distress Head exam: Present: atraumatic, normocephalic, normal inspection Eye exam: Present: normal appearance, EOMI Neck exam: Present: normal inspection, full ROM Respiratory exam: Present: normal lung sounds bilaterally. Absent: respiratory distress, wheezes, rales, rhonchi, stridor Cardiovascular Exam: Present: regular rate, normal rhythm, normal heart sounds. Absent: systolic murmur, diastolic murmur, rubs, gallop, clicks GI/Abdominal exam: Present: soft, tenderness. Absent: distended, guarding, rebound, rigid Neurological exam: Present: alert, oriented X3, CN II-XII intact Psychiatric exam: Present: normal affect, normal mood Skin exam: Present: warm, dry, intact, normal color. Absent: rash Course Vital Signs 05/01/23 05/01/23 05/01/23 21:23 21:45 22:27 Temperature 97.9 F Pulse Rate 78 62 67 Respiratory 18 18 18 Rate Blood Pressure 140/94 140/70 98/70 O2 Sat by Pulse 100 98 98 Oximetry 05/02/23 00:58 Temperature 97.9 F Pulse Rate 68 Respiratory 18 Rate Blood Pressure 101/68 O2 Sat by Pulse 98 Oximetry Medical Decision Making - Medical Decision Making Was pt. sent in by a medical professional or institution ([facility], [employer], urgent care, hospital, or group home...) When possible be specific @ -No Did you speak to anyone other than the patient for history (EMS, parent, family, police, friend...)? What history was obtained from this source @ -No Did you review nursing and triage notes (agree or disagree)? Why? @ -I reviewed and agree with nursing and triage notes Were old charts reviewed (outside hosp., previous admission, EMS record, old EKG, old radiological studies, urgent care reports/EKG's, group home records)? Report findings @ -No old charts were reviewed Differential Diagnosis (chest pain, altered mental status, abdominal pain women, abdominal pain men, vaginal bleeding, weakness, fever, dyspnea, syncope, headache, dizziness, GI bleed, back pain, seizure, CVA, palpatations, mental health, musculoskeletal)? @ -MDM Differential Abdominal Pain Women: Appendicitis, Cholecystitis, diverticulosis, ischemic bowel, pancreatitis, hepatitis, UTI, gastroenteritis, AAA, incarcerated hernia, bowel obstruction, constipation, inflammatory bowel, hepatitis, peptic ulcer disease, splenic infarction, perforated viscus, vulvitis, ovarian torsion, PID, kidney stone, placenta abruption... This is not meant to be an all-inclusive list EKG interpreted by me (3pts min.). @ -As above X-rays interpreted by me (1pt min.). @ -None done CT interpreted by me (1pt min.). @ -Nonobstructing bilateral renal calculi. No obstructive uropathy. U/S interpreted by me (1pt. min.). @ -None done What testing was considered but not performed or refused? (CT, X-rays, U/S, labs)? Why? @ -None What meds were considered but not given or refused? Why? @ -None Did you discuss the management of the patient with other professionals (professionals i.e. , PA, [employer], lab, RT, psych nurse, dialysis social worker, handle sander operator, teacher, chief sustainability officer, protective services case worker)? Give summary @ -No Was smoking cessation discussed for >3mins.? @ -No Was critical care preformed (if so, how long)? @ -No Were there social determinants of health that impacted care today? How? (Homelessness, low income, unemployed, alcoholism, drug addiction, transportation, low edu. Level, literacy, decrease access to med. care, [facility], rehab)? @ -No Was there de-escalation of care discussed even if they declined (Discuss DNR or withdrawal of care, Hospice)? DNR status @ -No What co-morbidities impacted this encounter? (DM, HTN, Smoking, COPD, CAD, Cancer, CVA, ARF, Chemo, Hep., AIDS, mental health diagnosis, sleep apnea, morbid obesity)? @ -None Was patient admitted / discharged? Hospital course, mention meds given and route, prescriptions, significant lab abnormalities, going to OR and other p ertinent info. @ -42-year-old female presenting with chief complaint of right-sided abdominal pain. History of kidney stones. Physical exam was conducted. Lab work shows potassium 2.8. Urinalysis positive for infection. CT negative for obstructive uropathy. Patient will be treated with Keflex twice a day for 14 days. Provided prescription for potassium at home. Follow-up with PCP. Report back to ER with any new or worsening symptoms. Discussed return parameters and answered all questions. Patient conveyed verbal understanding and agreed to the plan. I discussed this case in detail with my attending Dr. Lal Undiagnosed new problem with uncertain prognosis? @ -No Drug Therapy requiring intensive monitoring for toxicity (Heparin, Nitro, Insulin, Cardizem)? @ -No Were any procedures done? @ -No Diagnosis/symptom? @ -UTI Acute, or Chronic, or Acute on Chronic? @ -Acute Uncomplicated (without systemic symptoms) or Complicated (systemic symptoms)? @ -Uncomplicated Side effects of treatment? @ -No Exacerbation, Progression, or Severe Exacerbation? @ -No Poses a threat to life or bodily function? How? (Chest pain, [place], [place], pneumonia, PE, COPD, DKA, ARF, appy, cholecystitis, CVA, Diverticulitis, Homicidal, Suicidal, threat to staff... and all critical care pts) @ -No - Lab Data Result diagrams: 05/01/23 21:44 05/01/23 21:44 Lab Results 05/01/23 05/01/23 05/01/23 Range/Units 21:44 21:44 21:44 WBC 9.6 (3.8-10.6) k/uL RBC 4.87 (3.80-5.40) m/uL Hgb 14.4 (11.4-16.0) gm/dL Hct 42.3 (34.0-46.0) % MCV 86.9 (80.0-100.0) fL MCH 29.5 (25.0-35.0) pg MCHC 33.9 (31.0-37.0) g/dL RDW 12.9 (11.5-15.5) % Plt Count 297 (150-450) k/uL MPV 8.1 Neutrophils % 64 % Lymphocytes % 27 % Monocytes % 5 % Eosinophils % 2 % Basophils % 0 % Neutrophils # 6.2 (1.3-7.7) k/uL Lymphocytes # 2.7 (1.0-4.8) k/uL Monocytes # 0.5 (0-1.0) k/uL Eosinophils # 0.2 (0-0.7) k/uL Basophils # 0.0 (0-0.2) k/uL Sodium 137 (137-145) mmol/L Potassium 2.8 L (3.5-5.1) mmol/L Chloride 103 (98-107) mmol/L Carbon Dioxide 21 L (22-30) mmol/L Anion Gap 13 mmol/L BUN 12 (7-17) mg/dL Creatinine 0.61 (0.52-1.04) mg/dL Est GFR (CKD-EPI)AfAm >90 (>60 ml/min/1.73 sqM) Est GFR (CKD-EPI)NonAf >90 (>60 ml/min/1.73 sqM) Glucose 106 H (74-99) mg/dL Calcium 10.4 H (8.4-10.2) mg/dL Total Bilirubin 0.5 (0.2-1.3) mg/dL AST 29 (14-36) U/L ALT 27 (4-34) U/L Alkaline Phosphatase 67 (38-126) U/L Total Protein 7.4 (6.3-8.2) g/dL Albumin 4.7 (3.5-5.0) g/dL Urine Color Yellow Urine Appearance Turbid H (Clear) Urine pH 6.0 (5.0-8.0) Ur Specific [place] 1.024 (1.001-1.035) Urine Protein Trace H (Negative) Urine Glucose (UA) Negative (Negative) Urine Ketones 1+ H (Negative) Urine Blood Small H (Negative) Urine Nitrite Negative (Negative) Urine Bilirubin Negative (Negative) Urine Urobilinogen <2.0 (<2.0) mg/dL Ur Leukocyte Esterase Large H (Negative) Urine RBC 2 (0-5) /hpf Urine WBC >182 H (0-5) /hpf Ur Squamous Epith Cells 34 H (0-4) /hpf Urine Bacteria Few H (None) /hpf Urine Mucus Rare H (None) /hpf Disposition Clinical Impression: UTI (urinary tract infection) Disposition: HOME SELF-CARE Condition: Good Instructions (If sedation given, give patient instructions): Kidney Infection (ED) Additional Instructions: Follow-up with PCP. Report back to ER with any new or worsening symptoms. Take medication as prescribed. Prescriptions: Potassium Chloride ER [K-Dur 20] 20 meq PO DAILY 5 Days #5 tab Cephalexin [Keflex] 500 mg PO Q12HR 14 Days #28 cap Ketorolac [Toradol] 10 mg PO Q6HR PRN #12 tab PRN Reason: Pain Ondansetron Odt [Zofran Odt] 4 mg PO Q8HR PRN #20 tab PRN Reason: Nausea Is patient prescribed a controlled substance at d/c from ED?: No Referrals: [facility] [Primary Care Provider] - 1-2 days Time of Disposition: 00:33
[2023-05-02] MEDS ORDERED: ACETAMINOPHEN TAB 500 MG TAB PO STA (00:46)
[2023-05-02 01:01] VITALS: BP 101/68; PULSE 68
== END 2023-05-02 00:58 | disposition home or self-care (01) ==
LOC: EC 21:17
DX: N39.0 Urinary tract infection, site not specified (principal); N20.0 Calculus of kidney; F17.200 Nicotine dependence, unspecified, uncomplicated; Z86.59 Personal history of other mental and behavioral disorders
CPT/HCPCS: 36415; 80053; 85025; 81001; 87086; 74176; 99284; 96374; 96375; J2405; J1885

== ENCOUNTER 2023-05-02 11:10 | Emergency (ER) | payer OTHER ==
[2023-05-02 11:47] VITALS: TEMP 98.1
[2023-05-02 12:30] LABS: Basophils % (A) 0 %; Eosinophils # (A) 0.1 k/uL (0-0.7); Eosinophils % (A) 1 %; HCT 39.2 % (34.0-46.0); HGB 13.6 gm/dL (11.4-16.0); Lymphocytes # (A) 1.3 k/uL (1.0-4.8); Lymphocytes % (A) 15 %; MCH 30.3 pg (25.0-35.0); MCHC 34.6 g/dL (31.0-37.0); MCV 87.4 fL (80.0-100.0); Monocytes # (A) 0.4 k/uL (0-1.0); Monocytes % (A) 4 %; Neutrophils % (A) 79 %; Platelet Count 249 k/uL (150-450); RBC 4.49 m/uL (3.80-5.40); RDW 13.1 % (11.5-15.5); WBC 8.9 k/uL (3.8-10.6)
[2023-05-02] MEDS ORDERED: SODIUM CHLORIDE 0.9% 1,000 ML IV ONE (12:32)
[2023-05-02] MEDS ORDERED: ONDANSETRON 4 MG/2 ML VIAL IVP STA (12:32)
[2023-05-02] MEDS ORDERED: MORPHINE SULFATE 4 MG/ML SYRINGE IV STA ×2 (12:32→14:42)
[2023-05-02 12:48] LABS: African American GFR (CKD) >90 (>60 ml/min/1.73 sqM); Anion Gap 5 mmol/L; Blood Urea Nitrogen 11 mg/dL (7-17); Calcium 8.7 mg/dL (8.4-10.2); Carbon Dioxide 22 mmol/L (22-30); Chloride 108 mmol/L (98-107); Glucose 93 mg/dL (74-99); Magnesium 1.7 mg/dL (1.6-2.3); Non-African American GFR(CKD) >90 (>60 ml/min/1.73 sqM); Potassium 3.7 mmol/L (3.5-5.1); Sodium 135 mmol/L (137-145)
[2023-05-02 13:32] LABS: Appearance,Urine Turbid (Clear); Bacteria,Urine Many /hpf; Bilirubin,Urine Negative (Negative); Blood,Urine Trace (Negative); Color,Urine Yellow; Glucose,Urine (UA) Negative (Negative); Ketones,Urine 2+ (Negative); Leukocyte Esterase,Urine Large (Negative); Mucus,Urine Many /hpf; Nitrite,Urine Positive (Negative); Protein,Urine 1+ (Negative); RBC,Urine 4 /hpf (0-5); Specific Gravity,Urine 1.029 (1.001-1.035); Squamous Epithelial Cell,Urine 27 /hpf (0-4); Urobilinogen,Urine <2.0 mg/dL (<2.0); WBC,Urine >182 /hpf (0-5)
[2023-05-02 14:54] VITALS: BP 158/100; PULSE 62; RESP 20
--- NOTE | 2023-05-02 15:08 | ED ---
Abdominal Pain HPI - General Chief Complaint: Abdominal Pain Stated Complaint: abd pain Time Seen by Provider: 05/02/23 12:04 Source: patient Mode of arrival: ambulatory Limitations: no limitations - History of Present Illness Initial Comments: This patient is a 42-year-old woman presenting to have evaluation of abdominal pain. Patient indicates the pain is diffusely through the abdomen. She states that it seems to come in waves, lasting 15-30 minutes. Will be sharp cramping then improve though there is some mild pain at baseline. She was seen here yesterday, told that she had urinary tract infection. The patient at that time had labs and computed tomography scan. Patient has not had fever or chills. She has had nausea and 2 episodes of vomiting, no blood or coffee-ground material. She states last bowel movement was last night and normal for her. Urine has been darker than usual. MD Complaint: abdominal pain -: days(s) Location: diffuse Quality: cramping, sharp Consistency: colicky Improves With: nothing Worsens With: nothing Associated Symptoms: nausea, vomiting - Related Data Home Medications Medication Instructions Recorded Confirmed Buprenorphine HCl/Naloxone HCl 1 film SUBLINGUAL TID 05/28/21 01/08/22 [Suboxone 8 mg-2 mg Sl Film] Previous Rx's Medication Instructions Recorded Ibuprofen [Motrin] 600 mg PO Q6HR PRN #30 tab 01/08/22 Cephalexin [Keflex] 500 mg PO Q12HR 14 Days #28 cap 05/02/23 Ketorolac [Toradol] 10 mg PO Q6HR PRN #12 tab 05/02/23 Ondansetron Odt [Zofran Odt] 4 mg PO Q8HR PRN #20 tab 05/02/23 Potassium Chloride ER [K-Dur 20] 20 meq PO DAILY 5 Days #5 tab 05/02/23 Allergies Allergy/AdvReac Type Severity Reaction Status Date / Time No Known Allergies Allergy Verified 05/02/23 11:25 Review of Systems ROS Statement: Those systems with pertinent positive or pertinent negative responses have been documented in the HPI. ROS Other: All systems not noted in ROS Statement are negative. Constitutional: Denies: fever, chills, weakness Respiratory: Denies: cough, dyspnea Cardiovascular: Denies: chest pain, palpitations, edema Gastrointestinal: Reports: as per HPI, abdominal pain, nausea, vomiting. Denies: diarrhea, constipation, melena, hematochezia Genitourinary: Reports: hematuria (Possible). Denies: dysuria, frequency, discharge Musculoskeletal: Denies: back pain Skin: Denies: rash Neurological: Denies: headache, weakness, numbness Past Medical History Past Medical History: Musculoskeletal Disorder Additional Past Medical History / Comment(s): 2018-fx. femur-R, hx. kidney stones, heavy frequent periods History of Any Multi-Drug Resistant Organisms: Other MDRO Date of last positivie culture/infection: 05/28/21 MDRO Source:: URINE Past Surgical History: Appendectomy, Orthopedic Surgery, Tubal Ligation Additional Past Surgical History / Comment(s): ORIF right femur & hip,. RT URETERAL STENT 05/28/21 Past Anesthesia/Blood Transfusion Reactions: No Reported Reaction Past Psychological History: Depression, PTSD Smoking Status: Current every day smoker Past Alcohol Use History: None Reported Past Drug Use History: None Reported - Past Family History Mother Family Medical History: Diabetes Mellitus Father Family Medical History: Diabetes Mellitus General Exam Limitations: no limitations General appearance: alert, in no apparent distress Head exam: Present: atraumatic, normocephalic Eye exam: Present: normal appearance. Absent: scleral icterus, conjunctival injection ENT exam: Present: normal oropharynx Neck exam: Present: normal inspection Respiratory exam: Present: normal lung sounds bilaterally. Absent: respiratory distress, wheezes, rales, rhonchi, stridor Cardiovascular Exam: Present: regular rate, normal rhythm, normal heart sounds. Absent: systolic murmur, diastolic murmur, rubs, gallop GI/Abdominal exam: Present: soft, normal bowel sounds. Absent: distended, tenderness, guarding, rebound, rigid, mass, pulsatile mass, hernia Extremities exam: Present: normal inspection, normal capillary refill. Absent: pedal edema, calf tenderness Back exam: Present: normal inspection. Absent: CVA tenderness (R), CVA tenderness (L) Neurological exam: Present: alert Skin exam: Present: warm, dry, intact, normal color. Absent: rash Course Vital Signs 05/02/23 05/02/23 05/02/23 11:23 11:40 14:52 Temperature 98.2 F 98.1 F Pulse Rate 69 74 62 Respiratory 20 22 20 Rate Blood Pressure 118/84 119/89 158/100 O2 Sat by Pulse 98 98 100 Oximetry Medical Decision Making - Medical Decision Making This patient is 42-year-old woman here for reevaluation related to abdominal pain that she had evaluated here yesterday. I reviewed the previous visit. I reviewed the computed tomography scan. The patient is given analgesia and then had good relief of symptoms. On reevaluation, she is feeling better and would like to go home. The patient is to continue the antibiotics which were prescribed. She is given follow-up instructions and return parameters. All questions answered Was pt. sent in by a medical professional or institution (, PA, [employer], urgent care, hospital, or [facility]...) When possible be specific @ -[No] Did you speak to anyone other than the patient for history (EMS, parent, family, police, friend...)? What history was obtained from this source @ -[No] Did you review nursing and triage notes (agree or disagree)? Why? @ -[I reviewed and agree with nursing and triage notes] Were old charts reviewed (outside hosp., previous admission, EMS record, old EKG, old radiological studies, urgent care reports/EKG's, [facility] records)? Report findings @ -[Previous chart reviewed Differential Diagnosis (chest pain, altered mental status, abdominal pain women, abdominal pain men, vaginal bleeding, weakness, fever, dyspnea, syncope, headache, dizziness, GI bleed, back pain, seizure, CVA, palpatations, mental hea lth, musculoskeletal)? @ -[Differential Abdominal Pain Women: Appendicitis, Cholecystitis, diverticulosis, ischemic bowel, pancreatitis, hepatitis, UTI, gastroenteritis, AAA, incarcerated hernia, bowel obstruction, constipation, inflammatory bowel, hepatitis, peptic ulcer disease, splenic infarction, perforated viscus, vulvitis, ovarian torsion, PID, kidney stone, placenta abruption, this is not meant to be an all-inclusive list EKG interpreted by me (3pts min.). @ -[As above] X-rays interpreted by me (1pt min.). @ -[None done] CT interpreted by me (1pt min.). @ -[None done] U/S interpreted by me (1pt. min.). @ -[None done] What testing was considered but not performed or refused? (CT, X-rays, U/S, l abs)? Why? @ -[Given the initial degree of patient's pain computed tomography scan was considered but she had this yesterday and an interest of decreasing radiation exposure this was held, the patient subsequently had improvement What meds were considered but not given or refused? Why? @ -[None] Did you discuss the management of the patient with other professionals (professionals i.e. , PA, [employer], lab, RT, psych nurse, social worker aide, unit clerk, teacher, senior commercial loan officer, director of casework)? Give summary @ -[No] Was smoking cessation discussed for >3mins.? @ -[No] Was critical care preformed (if so, how long)? @ -[No] Were there social determinants of health that impacted care today? How? (Homelessness, low income, unemployed, alcoholism, drug addiction, transportation, low edu. Level, literacy, decrease access to med. care, [facility], rehab)? @ -[No] Was there de-escalation of care discussed even if they declined (Discuss DNR or withdrawal of care, Hospice)? DNR status @ -[No] What co-morbidities impacted this encounter? (DM, HTN, Smoking, COPD, CAD, Cancer, CVA, ARF, Chemo, Hep., AIDS, mental health diagnosis, sleep apnea, morbid obesity)? @ -[None] Was patient admitted / discharged? Hospital course, mention meds given and route, prescriptions, significant lab abnormalities, going to OR and other pertinent info. @ -[As above Undiagnosed new problem with uncertain prognosis? @ -[No] Drug Therapy requiring intensive monitoring for toxicity (Heparin, Nitro, Insulin, Cardizem)? @ -[No] Were any procedures done? @ -[No] Diagnosis/symptom? @ -[Acute abdominal pain Acute urinary tract infection Acute, or Chronic, or Acute on Chronic? @ -[default] Uncomplicated (without systemic symptoms) or Complicated (systemic symptoms)? @ -[Uncomplicated Side effects of treatment? @ -[No] Exacerbation, Progression, or Severe Exacerbation? @ -[No] Poses a threat to life or bodily function? How? (Chest pain, [place], [place], pneumonia, PE, COPD, DKA, ARF, appy, cholecystitis, CVA, Diverticulitis, Homicidal, Suicidal, threat to staff... and all critical care pts) @ -[No] - Lab Data Result diagrams: 05/02/23 12:16 05/02/23 12:16 Lab Results 05/02/23 05/02/23 05/02/23 Range/Units 12:16 12:16 12:16 WBC 8.9 (3.8-10.6) k/uL RBC 4.49 (3.80-5.40) m/uL Hgb 13.6 (11.4-16.0) gm/dL Hct 39.2 (34.0-46.0) % MCV 87.4 (80.0-100.0) fL MCH 30.3 (25.0-35.0) pg MCHC 34.6 (31.0-37.0) g/dL RDW 13.1 (11.5-15.5) % Plt Count 249 (150-450) k/uL MPV 8.0 Neutrophils % 79 % Lymphocytes % 15 % Monocytes % 4 % Eosinophils % 1 % Basophils % 0 % Neutrophils # 7.0 (1.3-7.7) k/uL Lymphocytes # 1.3 (1.0-4.8) k/uL Monocytes # 0.4 (0-1.0) k/uL Eosinophils # 0.1 (0-0.7) k/uL Basophils # 0.0 (0-0.2) k/uL Sodium 135 L (137-145) mmol/L Potassium 3.7 (3.5-5.1) mmol/L Chloride 108 H (98-107) mmol/L Carbon Dioxide 22 (22-30) mmol/L Anion Gap 5 mmol/L BUN 11 (7-17) mg/dL Creatinine 0.54 (0.52-1.04) mg/dL Est GFR (CKD-EPI)AfAm >90 (>60 ml/min/1.73 sqM) Est GFR (CKD-EPI)NonAf >90 (>60 ml/min/1.73 sqM) Glucose 93 (74-99) mg/dL Plasma Lactic Acid Kilo 0.7 (0.7-2.0) mmol/L Calcium 8.7 (8.4-10.2) mg/dL Magnesium 1.7 (1.6-2.3) mg/dL C-Reactive Protein (<1.0) mg/dL Urine Color Urine Appearance (Clear) Urine pH (5.0-8.0) Ur Specific [place] (1.001-1.035) Urine Protein (Negative) Urine Glucose (UA) (Negative) Urine Ketones (Negative) Urine Blood (Negative) Urine Nitrite (Negative) Urine Bilirubin (Negative) Urine Urobilinogen (<2.0) mg/dL Ur Leukocyte Esterase (Negative) Urine RBC (0-5) /hpf Urine WBC (0-5) /hpf Ur Squamous Epith Cells (0-4) /hpf Urine Bacteria (None) /hpf Urine Mucus (None) /hpf 05/02/23 05/02/23 Range/Units 12:49 12:49 WBC (3.8-10.6) k/uL RBC (3.80-5.40) m/uL Hgb (11.4-16.0) gm/dL Hct (34.0-46.0) % MCV (80.0-100.0) fL MCH (25.0-35.0) pg MCHC (31.0-37.0) g/dL RDW (11.5-15.5) % Plt Count (150-450) k/uL MPV Neutrophils % % Lymphocytes % % Monocytes % % Eosinophils % % Basophils % % Neutrophils # (1.3-7.7) k/uL Lymphocytes # (1.0-4.8) k/uL Monocytes # (0-1.0) k/uL Eosinophils # (0-0.7) k/uL Basophils # (0-0.2) k/uL Sodium (137-145) mmol/L Potassium (3.5-5.1) mmol/L Chloride (98-107) mmol/L Carbon Dioxide (22-30) mmol/L Anion Gap mmol/L BUN (7-17) mg/dL Creatinine (0.52-1.04) mg/dL Est GFR (CKD-EPI)AfAm (>60 ml/min/1.73 sqM) Est GFR (CKD-EPI)NonAf (>60 ml/min/1.73 sqM) Glucose (74-99) mg/dL Plasma Lactic Acid Kilo (0.7-2.0) mmol/L Calcium (8.4-10.2) mg/dL Magnesium (1.6-2.3) mg/dL C-Reactive Protein <0.5 (<1.0) mg/dL Urine Color Yellow Urine Appearance Turbid H (Clear) Urine pH 6.0 (5.0-8.0) Ur Specific [place] 1.029 (1.001-1.035) Urine Protein 1+ H (Negative) Urine Glucose (UA) Negative (Negative) Urine Ketones 2+ H (Negative) Urine Blood Trace H (Negative) Urine Nitrite Positive H (Negative) Urine Bilirubin Negative (Negative) Urine Urobilinogen <2.0 (<2.0) mg/dL Ur Leukocyte Esterase Large H (Negative) Urine RBC 4 (0-5) /hpf Urine WBC >182 H (0-5) /hpf Ur Squamous Epith Cells 27 H (0-4) /hpf Urine Bacteria Many H (None) /hpf Urine Mucus Many H (None) /hpf Disposition Clinical Impression: Urinary tract infection, Abdominal pain Disposition: HOME SELF-CARE Condition: Good Instructions (If sedation given, give patient instructions): Urinary Tract Infection in Women (ED), Abdominal Pain (ED) Is patient prescribed a controlled substance at d/c from ED?: No Referrals: [facility] Jaxson dukes [Primary Care Provider] - 1-2 days
== END 2023-05-02 17:09 | disposition home or self-care (01) ==
LOC: EC 11:10
DX: N39.0 Urinary tract infection, site not specified (principal); B96.20 Unspecified Escherichia coli [E. coli] as the cause of diseases classified elsewhere; F17.200 Nicotine dependence, unspecified, uncomplicated; Z86.59 Personal history of other mental and behavioral disorders
CPT/HCPCS: 36415; 80048; 83605; 83735; 85025; 86140; 81001; 87086; 87077; 87186; 99284; 96365; 96375 ×2; 96376; 96361; J2270; J2405; J0696